=== PATIENT | male | born 1925 | race Hispanic/Latino ===

== ENCOUNTER 2016-09-28 09:43 | Inpatient (IN) | payer MEDICARE ==
[2016-09-28 09:47] VITALS: BMI 29.7
--- NOTE | 2016-09-28 10:23 | C.PDOC ---
History Of Present Illness 89-year-old male, PMHx includes Hypertension and Hypercholesterolemia, presents to the emergency department with complaints of new onset left chest pain that started an hour ago. Patient states pain worsens when she is walking. It is intermittent, sharp and localized, lasting minutes. Persistent and non- exertional, associated with light headedness. Denies nausea/vomiting, shortness of breath, fevers, chest pain. Patient has a Hx of "bad valve" No prior cardiac cath. Last stress test was several years ago. Denies Hx of known CAD. 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 ONSET WHEN WALKING, INTERMIT, SHARP, LOCALIZED LASTING MINUTES. PERSIST, NONEXERTIONAL. +ASSOC LIGHTHEADEDNESS. DENIES NV, SOB , FEVER, CP. HO "BAD VALVE". NO PRIOR CARDIAC CATH. LAST STRESS "SEV YRS AGO". DENIES HO KNOWN CAD. CARDIO DR MURIEL PATIÑO S/P CT 07/2016 +ABN CT W RENAL MASS. PS PENDING FU W DR PATIÑO FOR SAME EXAM MILD DIST NONTOXIC LUNGS NEG CHEST WALL NONTEND ABD NEG REMAINDER NEG Time Seen by Provider: 09/28/16 10:13 Chief Complaint (Nursing): Chest Pain History Per: Patient History/Exam Limitations: no limitations Onset/Duration Of Symptoms: Hrs Current Symptoms Are (Timing): Still Present Past Medical History Reviewed: Historical Data, Nursing Documentation, Vital Signs Vital Signs: Last Vital Signs Temp 98.1 F 10/05/16 05:25 Pulse 60 10/05/16 05:25 Resp 20 10/05/16 05:25 BP 156/74 H 10/05/16 05:25 Pulse Ox 96 10/05/16 07:21 - Medical History PMH: HTN, Hypercholesterolemia, Hypothyroidism, Pneumonia Denies: Chronic Kidney Disease Surgical History: Appendectomy, Tonsillectomy - [facility] Procedures CLOSURE SKIN & SUBCUTANEOUS NEC (07/29/14) INSERT INDWELLING CATH (12/12/12) TETANUS TOXOID ADMINIST (07/29/14) Family History: States: Unknown Family Hx - Social History Hx Tobacco Use: Yes (> 40 years no smoking) Hx Alcohol Use: Yes (wine) Hx Substance Use: No - Immunization History Hx Tetanus Toxoid Vaccination: Yes Hx Influenza Vaccination: Yes (2014) Hx Pneumococcal Vaccination: Yes (2014) Review Of Systems Except As Marked, All Systems Reviewed And Found Negative. Constitutional: Negative for: Fever, Chills Cardiovascular: Positive for: Chest Pain. Negative for: Palpitations, Edema Respiratory: Negative for: Shortness of Breath Gastrointestinal: Negative for: Nausea, Vomiting Neurological: Positive for: Dizziness Physical Exam - Physical Exam Appears: Non-toxic, No Acute Distress Skin: Warm, Dry, No Rash Head: Atraumatic, Normacephalic Eye(s): bilateral: Normal Inspection, PERRL Nose: Normal Oral Mucosa: Moist Lips: Normal Appearing Neck: Normal ROM Chest: Symmetrical Respiratory: No Accessory Muscle Use Extremity: Normal ROM Neurological/Psych: Oriented x3, Normal Speech ED Course And Treatment - Laboratory Results Result Diagrams: 10/05/16 06:19 10/05/16 06:19 ECG Rhythm: 1st Degree HB ECG Interpretation: No Acute Changes Rate From EC O2 Sat by Pulse Oximetry: 96 Pulse Ox Interpretation: Normal Progress - Re-Evaluation Re-evaluation Note: 09/28/16 12:00 D/W DR WISE C/F DR LLAMAS WILL CONSULT 09/28/16 12:10 D/W DR MILLER C/F PMD WILL ADMIT - Data Reviewed Data Reviewed: Lab, Diagnostic imaging, EKG, Old records - Continuity of Care Discussed patient case with:: Covering for PMD Discussed pt. case with [employer] consultant/specialty: Cardiology Medical Decision Making Medical Decision Making: S/P CT 07/2016 +ABN CT W RENAL MASS. PS PENDING FU W DR PATIÑO FOR SAME Disposition Counseled Patient/Family Regarding: Studies Performed, Diagnosis, Need For Followup - Disposition Disposition: HOSPITALIZED Disposition Time: 12:11 Condition: STABLE - POA Present On Arrival: None - Clinical Impression Clinical Impression: Chest pain - Scribe Statement The provider has reviewed the documentation as recorded by the Julia Valenzuela All medical record entries made by the Kenyattaibe were at my direction and personally dictated by me. I have reviewed the chart and agree that the record accurately reflects my personal performance of the history, physical exam, medical decision making, and the department course for this patient. I have also personally directed, reviewed, and agree with the discharge instructions and disposition. Decision To Admit - Pt Status Changed To: Hospital Disposition Of: Observation - . Bed Request Type: Telemetry Admitting Physician: Robert Miller Patient Diagnosis: Chest pain
[2016-09-28 10:57] LABS: BASO # 0.1 K/uL (0.0-0.2); BASO % 1.3 % (0.0-2.0); EOS # 0.1 K/uL (0.0-0.7); EOS % 2.4 % (0.0-4.0); LYMPH # 1.2 K/uL (1.0-4.3); LYMPH % 19.4 % (20.0-40.0); MEAN CELL VOLUME 89.8 fL (80.0-94.0); MEAN CORPUSCULAR HEMOGLOBIN 30.3 pg (27.0-31.0); MEAN CORPUSCULAR HGB CONC 33.8 g/dL (33.0-37.0); MEAN PLATELET VOLUME 8.3 fL (7.2-11.7); MONO # 0.5 K/uL (0.0-0.8); MONO % 7.8 % (0.0-10.0); NRBC % 0.4 % (0.0-2.0); RED CELL DISTRIBUTION WIDTH 14.4 % (11.5-14.5); WHITE BLOOD COUNT 6.2 K/uL (4.8-10.8)
[2016-09-28 11:05] LABS: CHLORIDE 107 mmol/L (98-107); SODIUM 142 mmol/L (132-148)
[2016-09-28 11:07] LABS: AST/SGOT 24 U/L (17-59); BILIRUBIN,TOTAL 0.8 mg/dL (0.2-1.3); CARBON DIOXIDE 20 mmol/L (22-30); GFR AFRICAN-AMERICAN > 60
[2016-09-28 11:08] LABS: ALB/GLOB RATIO 1.6 (1.0-2.1); ALKALINE PHOSPHATASE 66 U/L (38-126); ALT/SGPT 12 U/L (21-72); BLOOD UREA NITROGEN 24 mg/dL (9-20); CALCIUM 8.7 mg/dl (8.6-10.4); GLUCOSE,RANDOM 82 mg/dL (75-110); INR 1.1; TOTAL PROTEIN 6.6 g/dL (6.3-8.3)
--- NOTE | 2016-09-28 11:38 | RAD ---
HISTORY: chest pain COMPARISON: Chest x-ray performed 05/06/16 TECHNIQUE: Chest, one view. FINDINGS: Examination limited by habitus, hypoinflation, and patient obliquity. LUNGS: No focal consolidation. Please note that chest x-ray has limited sensitivity for the detection of pulmonary masses. PLEURA: No significant pleural effusion identified. No definite pneumothorax . CARDIOVASCULAR: Cardiomegaly. Ectatic aorta. Right peritracheal opacity, likely tortuous vasculature exaggerated by patient obliquity. OSSEOUS STRUCTURES: No acute osseous abnormality identified. VISUALIZED UPPER ABDOMEN: Unremarkable. OTHER FINDINGS: None. IMPRESSION: No focal consolidation, significant pleural effusion, or definite pneumothorax identified.
--- NOTE | 2016-09-28 15:51 | CP.PCM.HP ---
<Naomi Chow - Last Filed: 09/28/16 16:09> History of Present Illness - History of Present Illness History of Present Illness: CC" chest pain" 89 year old male with PMHx of HTN, high cholesterol, hypothyroid, "heart problems", BPH presented to the emergency via ambulance complaining of intermittent chest pain. Patient reports chest pain began this AM when he was walking to the store. He states he felt associated dizziness with the chest pain. Pain was sharp, would come and go and resolve spontaneously. Eventually he made it home and sat down to see if pain would resolve, but pain did not resolve with rest. Denies diaphoresis, palpitations, shortness of breath, leg swelling, radiation into limbs, nausea, vomiting, cough, fevers, chills, skin pain or rash. Patient states this has never happened before. He follows with patient care associate Dr. Yeboah for "heart problem" that happened years ago. Patient was told he "might be having a heart attack" in the ambulance which concerned him. PMHx:HTN, high cholesterol, hypothyroid, CHF, BPH, recently diagnosed renal mass. Allergies: Demerol ("almost ") Medications: Aspirin 81 mg Po daily, Amlodipine/Benazepril 5/10 PO daily, Lipitor 10 mg PO daily, Dutasteride 0.5 mg PO daily, Levothyroxine, 100 mcg PO daily, Flomax 0.4 mg PO daily. Family hx: denies Surgery Hx: tonsillectomy, appendectomy, lipoma excision. Social: quit tobacco 45 years ago, drinks wine with dinner from time to time. Denies drug use. PMD: Dr. Cummins. Present on Admission - Present on Admission Any Indicators Present on Admission: No Review of Systems - Constitutional Constitutional: absent: Fatigue, Fever - EENT Eyes: absent: Blurred Vision, Change in Vision - Cardiovascular Cardiovascular: Chest Pain, Chest Pain at Rest. absent: Claudication, Diaphoresis, Dyspnea, Leg Edema, Pedal Edema, Radiating Pain - Respiratory Respiratory: absent: Cough, Dyspnea, Wheezing - Gastrointestinal Gastrointestinal: absent: Abdominal Pain, Constipation, Diarrhea, Nausea, Vomiting - Genitourinary Genitourinary: absent: Difficulty Urinating, Dysuria - Musculoskeletal Musculoskeletal: absent: Arthralgias, Back Pain, Myalgias, Numbness, Tingling - Neurological Neurological: Disequilibrium, Dizziness, Weakness. absent: Confusion, Focal Weakness, Loss of Vision, Syncope, Vertigo - Endocrine Endocrine: Fatigue. absent: Palpitations - Hematologic/Lymphatic Hematologic: absent: Easy Bleeding, Easy Bruising Past Patient History - Infectious Disease Hx of Infectious Diseases: None - Past Medical History & Family History Past Medical History?: Yes - Past Social History Smoking Status: Former Smoker - CARDIAC Hx Hypercholesterolemia: Yes Hx Hypertension: Yes - PULMONARY Hx Pneumonia: Yes - NEUROLOGICAL Hx Neurological Disorder: No - HEENT Hx HEENT Problems: Yes Hx Macular Degeneration: Yes (L eye) - RENAL Hx Chronic Kidney Disease: No - ENDOCRINE/METABOLIC Hx Hypothyroidism: Yes - HEMATOLOGICAL/ONCOLOGICAL Hx Blood Disorders: No - INTEGUMENTARY Hx Dermatological Problems: No - MUSCULOSKELETAL/RHEUMATOLOGICAL Hx Falls: No - GASTROINTESTINAL Hx Gastrointestinal Disorders: No - GENITOURINARY/GYNECOLOGICAL Hx Genitourinary Disorders: Yes Hx Prostate Problems: Yes - PSYCHIATRIC Hx Substance Use: No - SURGICAL HISTORY Hx Appendectomy: Yes Hx Tonsillectomy: Yes - ANESTHESIA Hx Anesthesia: Yes Hx Anesthesia Reactions: No Hx Malignant Hyperthermia: No Meds Allergies/Adverse Reactions: Allergies Allergy/AdvReac Type Severity Reaction Status Date / Time meperidine HCl [From Demerol] Allergy ANAPHYLAXIS Verified 09/28/16 09:57 Physical Exam - Constitutional Appears: No Acute Distress - Head Exam Head Exam: NORMAL INSPECTION, NORMOCEPHALIC - Eye Exam Eye Exam: EOMI, Normal appearance - ENT Exam ENT Exam: Mucous Membranes Moist - Neck Exam Neck exam: Positive for: Full Rom, Normal Inspection - Respiratory Exam Respiratory Exam: Clear to Auscultation Bilateral, NORMAL BREATHING PATTERN - Cardiovascular Exam Cardiovascular Exam: REGULAR RHYTHM, +S1, +S2. absent: Systolic Murmur - GI/Abdominal Exam GI & Abdominal Exam: Normal Bowel Sounds, Soft. absent: Distended, Tenderness - Extremities Exam Extremities exam: Positive for: full ROM, normal inspection - Back Exam Back exam: NORMAL INSPECTION - Neurological Exam Neurological exam: Alert, Oriented x3 - Psychiatric Exam Psychiatric exam: Normal Affect, Normal Mood - Skin Skin Exam: Normal Color, Warm Results - Vital Signs Recent Vital Signs: Last Vital Signs Temp 98 F 09/28/16 14:47 Pulse 60 09/28/16 14:47 Resp 16 09/28/16 14:47 BP 169/71 H 09/28/16 14:47 Pulse Ox 99 09/28/16 14:47 - Labs Result Diagrams: 09/28/16 10:48 09/28/16 10:48 Assessment & Plan (1) Chest pain Assessment and Plan: Admit to Tele/Obs IKER on admission: negative. EKG on admission shows 1 degree heart block. f/u IKER Q6H X3 f/u EKG Q6H X 3 D. Dimer: 229, WNL. Cardio consult placed- Dr. Yeboah- elyssa appreciated. Resume home meds: Aspirin 81 mg Po daily Crestor 5 mg PO daily (Atorvastatin no on formulary) Amlodipine-Benazepril 5-10 mg (not on formulary, pharmacy to substitute) 2L NC O2 Status: Acute (2) Chronic congestive heart failure Assessment and Plan: Cardio consult placed- Dr. Yeboah- elyssa appreciated. As per chart. 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 Resume home meds: Aspirin 81 mg Po daily Crestor 5 mg PO daily (Atorvastatin no on formulary) Amlodipine-Benazepril 5-10 mg (not on formulary, pharmacy to substitute) 2L NC O2 Status: Acute (3) Hyperlipidemia Assessment and Plan: Resume home med: Crestor 5 mg PO daily (Atorvastatin no on formulary) Status: Acute (4) BPH (benign prostatic hyperplasia) Assessment and Plan: Resume home meds: Flomax 0.4 mg PO daily Status: Chronic (5) Hypothyroidism Assessment and Plan: Resume Home med: Synthroid 100 mcg daily f/u TSH in the AM Status: Chronic (6) HTN (hypertension) Assessment and Plan: Cardio consult placed- Dr. Yeboah- elyssa appreciated. Resume home meds: Amlodipine-Benazepril 5-10 mg (not on formulary, pharmacy to substitute) Status: Acute (7) Renal mass Assessment and Plan: Abd CT 07/2016 showed renal mass. Patient pending outpatient follow up with Dr. Patiño. Status: Acute (8) Prophylactic measure Assessment and Plan: Protonix 40 mg PO daily Heparin 5000 SC Q8H Status: Acute <Robert Miller M - Last Filed: 09/28/16 17:19> Results - Vital Signs Recent Vital Signs: Last Vital Signs Temp 97.3 F L 09/28/16 15:46 Pulse 56 L 09/28/16 15:46 Resp 20 09/28/16 15:46 BP 150/69 09/28/16 15:46 Pulse Ox 99 09/28/16 15:46 - Labs Result Diagrams: 09/28/16 10:48 09/28/16 10:48 Attending/Attestation - Attestation I have personally seen and examined this patient.: Yes I have fully participated in the care of the patient.: Yes I have reviewed all pertinent clinical information: Yes Notes (Text): 09/28/16 17:15 Patient was seen and examined at bedside with the resident at the time of admission Patient denies any chest pain at this time Patient to be admitted on the telemetry unit for further evaluation and treatment We will rule out acute coronary syndrome. Cardiology consultation has been requested Patient to follow-up with the urologist for renal mass. We will request urology consultation. I discussed the plan of care with the resident and agree with the above history and physical and assessment/plan by the resident.
[2016-09-28] MEDS ORDERED: BENAZEPRIL PO SCH (15:55)
[2016-09-28] MEDS ORDERED: AMLODIPINE BESYLATE PO SCH (15:55)
[2016-09-28] MEDS ORDERED: Rosuvastatin Calcium 2.5 mg Tab PO SCH (22:00)
[2016-09-29] MEDS: Levothyroxine 100 MCG TAB PO SCH (05:46)
[2016-09-29 06:11] LABS: EOS # 0.2 K/uL (0.0-0.7); LYMPH # 1.3 K/uL (1.0-4.3); LYMPH % 19.4 % (20.0-40.0); MONO # 0.6 K/uL (0.0-0.8); NRBC % 0.1 % (0.0-2.0); RED CELL DISTRIBUTION WIDTH 14.2 % (11.5-14.5); WHITE BLOOD COUNT 6.6 K/uL (4.8-10.8)
[2016-09-29 06:16] LABS: BASO % 0.6 % (0.0-2.0); EOS % 3.5 % (0.0-4.0); HEMATOCRIT 41.4 % (35.0-51.0); MEAN CORPUSCULAR HGB CONC 34.8 g/dL (33.0-37.0); MEAN PLATELET VOLUME 8.4 fL (7.2-11.7); MONO % 8.6 % (0.0-10.0)
[2016-09-29 06:19] LABS: CHLORIDE 107 mmol/L (98-107); INR 1.1; SODIUM 142 mmol/L (132-148)
[2016-09-29 06:20] LABS: POTASSIUM 3.9 mmol/L (3.6-5.2)
[2016-09-29 06:21] LABS: CHOLESTEROL 131 mg/dL (0-199)
[2016-09-29 06:22] LABS: ALB/GLOB RATIO 1.6 (1.0-2.1); ALKALINE PHOSPHATASE 63 U/L (38-126); AST/SGOT 22 U/L (17-59); BILIRUBIN,TOTAL 0.7 mg/dL (0.2-1.3); BLOOD UREA NITROGEN 27 mg/dL (9-20); CARBON DIOXIDE 24 mmol/L (22-30); GFR AFRICAN-AMERICAN > 60; GLUCOSE,RANDOM 83 mg/dL (75-110); TOTAL PROTEIN 6.1 g/dL (6.3-8.3)
[2016-09-29 06:23] LABS: ALT/SGPT 24 U/L (21-72); CALCIUM 8.6 mg/dl (8.6-10.4)
[2016-09-29 06:53] LABS: THYROID STIMULATING HORMONE 0.77 mIU/L (0.46-4.68)
[2016-09-29] MEDS ORDERED: AMLODIPINE BESYLATE PO SCH (10:00)
[2016-09-29] MEDS ORDERED: BENAZEPRIL PO SCH (10:00)
[2016-09-29] MEDS: Pantoprazole 40 mg EC Tab PO SCH (10:09)
--- NOTE | 2016-09-29 10:50 | CP.PCM.PN ---
<Naomi Chow - Last Filed: 09/29/16 15:13> Subjective - Date & Time of Evaluation Date of Evaluation: 09/29/16 Time of Evaluation: 08:00 - Subjective Subjective: Medicine Progress Note: Patient seen and evaluated this morning. Patient reports he was feeling well this morning with no SOB, chest pain, fevers, chills, nausea, vomiting. Patient had some "chest soreness" in left chest. No acute events overnight. Rapid response was called at 10:40 am for sudden dizziness and feeling like he was "going to collapse". Patient was in the process of getting out of bed when event happened. EKG ordered stat showed 56 BPM with 2nd degree AV block. Prolonged MS with dropped beats. Patient symptomatic. Vital signs: 63 bpm, 175/83/ BS 102. Patient's telemetry was reviewed and patient showed bradycardia overnight night 50-56 bpm regular rhythm with 2 second pause. On bedside monitor patient was found to have HR 30-40's. Dr. Yeboah is patient 's senior communications engineer. Call was placed. Patient was placed on o2 and transferred to ICU for close monitoring. STAT IKER, Mag and Phos ordered. AM labs reviewed with attending. Objective - Vital Signs/Intake and Output Vital Signs (last 24 hours): Temp Pulse Resp BP Pulse Ox 97.7 F 61 19 183/88 H 96 09/29/16 08:16 09/29/16 08:46 09/29/16 08:16 09/29/16 10:10 09/29/16 08:16 Intake and Output: 09/29/16 09/29/16 06:59 18:59 Intake Total 150 Balance 150 - Medications Medications: Current Medications Amlodipine Besylate (Norvasc) 5 mg PO DAILY [facility] Last Admin: 09/29/16 10:09 Dose: 5 mg Aspirin (Ecotrin) 81 mg PO DAILY [facility] Last Admin: 09/29/16 10:10 Dose: 81 mg Enalapril Maleate (Vasotec) 5 mg PO DAILY [facility] Heparin Sodium (Porcine) (Heparin) 5,000 units SC Q8 [facility] Last Admin: 09/29/16 05:46 Dose: 5,000 units Levothyroxine Sodium (Synthroid) 100 mcg PO DAILY@0630 [facility] Last Admin: 09/29/16 05:46 Dose: 100 mcg Nitroglycerin (Nitrostat Sl Tab) 0.4 mg SL Q5M PRN Pantoprazole Sodium (Protonix Ec Tab) 40 mg PO DAILY [facility] Last Admin: 09/29/16 10:09 Dose: 40 mg Rosuvastatin Calcium (Crestor) 5 mg PO HS [facility] Last Admin: 09/28/16 21:13 Dose: 5 mg Tamsulosin HCl (Flomax) 0.4 mg PO DAILY [facility] Last Admin: 09/29/16 10:09 Dose: 0.4 mg - Labs Labs: 09/29/16 06:06 09/29/16 06:06 PT 12.1 SECONDS (9.7-12.2) 09/29/16 06:06 INR 1.1 09/29/16 06:06 APTT 35 SECONDS (21-34) H 09/29/16 06:06 - Constitutional Appears: In Acute Distress - Head Exam Head Exam: NORMAL INSPECTION, NORMOCEPHALIC - Eye Exam Eye Exam: EOMI, Normal appearance - ENT Exam ENT Exam: Mucous Membranes Moist - Neck Exam Neck Exam: Full ROM, Normal Inspection - Respiratory Exam Respiratory Exam: Clear to Ausculation Bilateral, NORMAL BREATHING PATTERN - Cardiovascular Exam Cardiovascular Exam: Bradycardia, REGULAR RHYTHM, +S1, +S2 - GI/Abdominal Exam GI & Abdominal Exam: Soft. absent: Distended, Tenderness - Extremities Exam Extremities Exam: Full ROM, Normal Inspection - Back Exam Back Exam: NORMAL INSPECTION - Neurological Exam Neurological Exam: Alert, Awake, Oriented x3 - Psychiatric Exam Psychiatric exam: Normal Affect, Normal Mood - Skin Skin Exam: Normal Color, Warm Assessment and Plan - Assessment and Plan (Free Text) Assessment: (1) Chest pain Assessment and Plan: Transferred from Tele to ICU this AM for cardiac monitoring. Telemetry showed bradycardia 50's. Monitor at bedside shows HR as low as 30-40' s with MS prolongation and dropped beats. EKG on admission shows 1st degree heart block. IKER Q6H X3 were also negative. D. Dimer: 229, WNL. Cardio consult placed- Dr. Yeboah- help appreciated. (Dr. Cassidy curtis) Gear Hobber Operator at bedside this AM. Possible plan for placement of pacemaker. Resume home meds: Aspirin 81 mg PO daily Crestor 5 mg PO daily (Atorvastatin no on formulary) Amlodipine-Benazepril 5-10 mg (not on formulary, pharmacy to substitute) 2L NC O2 Status: Acute (2) Chronic congestive heart failure Assessment and Plan: Cardio consult placed- Dr. Yeboah- elyssa appreciated. (Dr. Cassidy curtis) As per chart. 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 Resume home meds: Aspirin 81 mg Po daily Crestor 5 mg PO daily (Atorvastatin no on formulary) Amlodipine-Benazepril 5-10 mg (not on formulary, pharmacy to substitute) 2L NC O2 Status: Acute (3) Hyperlipidemia Assessment and Plan: Resume home med: Crestor 5 mg PO daily (Atorvastatin no on formulary) Status: Acute (4) BPH (benign prostatic hyperplasia) Assessment and Plan: Resume home meds: Flomax 0.4 mg PO daily Status: Chronic (5) Hypothyroidism Assessment and Plan: Resume Home med: Synthroid 100 mcg daily 0.77 TSH in the AM Status: Chronic (6) HTN (hypertension) Assessment and Plan: Cardio consult placed- Dr. Yeboah- elyssa appreciated. Resume home meds: Amlodipine-Benazepril 5-10 mg (not on formulary, pharmacy to substitute) Status: Acute (7) Renal mass Assessment and Plan: Abd CT 07/2016 showed renal mass. Patient pending outpatient follow up with Dr. Patiño. Urology consult placed- Dr. Patiño- elyssa appreciated. Status: Acute (8) Prophylactic measure Assessment and Plan: Protonix 40 mg PO daily Heparin 5000 SC Q8H Status: Acute <PaulRobert M - Last Filed: 09/29/16 17:06> Objective - Vital Signs/Intake and Output Vital Signs (last 24 hours): Temp Pulse Resp BP Pulse Ox 97.4 F L 72 13 132/64 95 09/29/16 11:15 09/29/16 14:17 09/29/16 14:17 09/29/16 14:17 09/29/16 14:17 - Medications Medications: Current Medications Amlodipine Besylate (Norvasc) 5 mg PO DAILY [facility] Last Admin: 09/29/16 10:09 Dose: 5 mg Aspirin (Ecotrin) 81 mg PO DAILY [facility] Last Admin: 09/29/16 10:10 Dose: 81 mg Enalapril Maleate (Vasotec) 5 mg PO DAILY [facility] Heparin Sodium (Porcine) (Heparin) 5,000 units SC Q8 [facility] Last Admin: 09/29/16 14:20 Dose: 5,000 units Dextrose/Sodium Chloride (Dextrose 5%/0.45% Ns 1000 Ml) 1,000 mls @ 60 mls/hr IV .[id number] [facility] Levothyroxine Sodium (Synthroid) 100 mcg PO DAILY@0630 [facility] Last Admin: 09/29/16 05:46 Dose: 100 mcg Nitroglycerin (Nitrostat Sl Tab) 0.4 mg SL Q5M PRN Pantoprazole Sodium (Protonix Ec Tab) 40 mg PO DAILY [facility] Last Admin: 09/29/16 10:09 Dose: 40 mg Rosuvastatin Calcium (Crestor) 5 mg PO HS [facility] Last Admin: 09/28/16 21:13 Dose: 5 mg Tamsulosin HCl (Flomax) 0.4 mg PO DAILY [facility] Last Admin: 09/29/16 10:09 Dose: 0.4 mg - Labs Labs: PT 12.1 SECONDS (9.7-12.2) 09/29/16 06:06 INR 1.1 09/29/16 06:06 APTT 35 SECONDS (21-34) H 09/29/16 06:06 Attending/Attestation - Attestation I have personally seen and examined this patient.: Yes I have fully participated in the care of the patient.: Yes I have reviewed all pertinent clinical information, including history, physical exam and plan: Yes Notes (Text): 09/29/16 17:04 Patient was seen and examined during the rapid response Patient was extremely symptomatic with dizziness and generalized weakness. EKG performed and patient was found to be in second-degree heart block Mobitz type I Patient was transferred to ICU and the cardiology consultation was done Atropine when necessary for symptomatic bradycardia and external pacemaker initiated. Patient is planned for pacemaker placement tomorrow morning I discussed the plan of care with the patient, patient's family I also discussed with the nursing staff, resident, ICU attending and the senior communications engineer I agree with the above history and physical and assessment/plan with the nursery amendments.
[2016-09-29 11:18] LABS: MAGNESIUM 2.3 mg/dL (1.6-2.3); PHOSPHOROUS 2.5 mg/dL (2.5-4.5)
--- NOTE | 2016-09-29 11:54 | CP.CCUPN ---
CCU Subjective - Physician Review Events Since Last Encounter (Free Text): 09/29/16 11:46 89yo M. PMHx HTN, dyslipidemia, hypothyroidism, BPH, tonsillectomy, appendectomy , renal mass, CHF. p/w chest pain and dizziness. Patient transferred to ICU for recurrent symptomatic bradycardia. CCU Objective - Vital Signs / Intake & Output Vital Signs (Last 4 hours): Vital Signs Temp Pulse Resp BP Pulse Ox 09/29/16 10:10 183/88 H 09/29/16 08:46 61 09/29/16 08:16 97.7 F 58 L 19 170/74 H 96 Intake and Output (Last 8hrs): Intake & Output 09/28/16 09/29/16 09/29/16 22:59 06:59 14:59 Intake Total 150 Balance 150 Weight 180 lb Intake: Oral 150 Other: # Voids Urine, Voided 1 - Physical Exam Head: Positive for: Atraumatic, Normocephalic Pupils: Positive for: PERRL Extroacular Muscles: Positive for: EOMI Mouth: Positive for: Moist Mucous Membranes Respiratory/Chest: Positive for: Clear to Auscultation, Good Air Exchange Cardiovascular: Positive for: Regular Rate and Rhythm Abdomen: Positive for: Normal Bowel Sounds. Negative for: Tenderness, Distention Neurological: Positive for: GCS=15, CN II-XII Intact, Speech Normal Psychiatric: Positive for: Alert, Oriented x 3 - Medications Active Medications: Active Medications Generic Name Dose Route Start Last Admin Trade Name Freq PRN Reason Stop Dose Admin Amlodipine Besylate 5 mg 09/29/16 10:00 09/29/16 10:09 Norvasc PO 5 mg DAILY ERIKA Administration Aspirin 81 mg 09/29/16 10:00 09/29/16 10:10 Ecotrin PO 81 mg DAILY ERIKA Administration Enalapril Maleate 5 mg 09/29/16 10:45 Vasotec PO DAILY ERIKA Heparin Sodium (Porcine) 5,000 units 09/28/16 22:00 09/29/16 05:46 Heparin SC 5,000 units Q8 ERIKA Administration Dextrose/Sodium Chloride 1,000 mls @ 60 mls/hr 09/30/16 09:00 Dextrose 5%/0.45% Ns 1000 Ml IV .[id number] [facility] Levothyroxine Sodium 100 mcg 09/29/16 06:30 09/29/16 05:46 Synthroid PO 100 mcg DAILY@0630 ERIKA Administration Nitroglycerin 0.4 mg 09/28/16 14:57 Nitrostat Sl Tab SL Q5M PRN Pantoprazole Sodium 40 mg 09/29/16 10:00 09/29/16 10:09 Protonix Ec Tab PO 40 mg DAILY ERIKA Administration Rosuvastatin Calcium 5 mg 09/28/16 22:00 09/28/16 21:13 Crestor PO 5 mg HS ERIKA Administration Tamsulosin HCl 0.4 mg 09/29/16 10:00 09/29/16 10:09 Flomax PO 0.4 mg DAILY ERIKA Administration - Patient Studies Lab Studies: Lab Studies 09/29/16 09/29/16 09/29/16 Range/Units 11:01 06:06 06:06 WBC (4.8-10.8) K/uL RBC (4.40-5.90) Mil/uL Hgb (12.0-18.0) g/dL Hct (35.0-51.0) % MCV (80.0-94.0) fL MCH (27.0-31.0) pg MCHC (33.0-37.0) g/dL RDW (11.5-14.5) % Plt Count (130-400) K/uL MPV (7.2-11.7) fL Neut % (Auto) (50.0-75.0) % Lymph % (Auto) (20.0-40.0) % Young % (Auto) (0.0-10.0) % Eos % (Auto) (0.0-4.0) % Baso % (Auto) (0.0-2.0) % Neut # (1.8-7.0) K/uL Lymph # (1.0-4.3) K/uL Young # (0.0-0.8) K/uL Eos # (0.0-0.7) K/uL Baso # (0.0-0.2) K/uL PT (9.7-12.2) SECONDS INR APTT (21-34) SECONDS Sodium (132-148) mmol/L Potassium (3.6-5.2) mmol/L Chloride (98-107) mmol/L Carbon Dioxide (22-30) mmol/L Anion Gap (10-20) BUN (9-20) mg/dL Creatinine (0.8-1.5) MG/DL Est GFR ( Amer) Est GFR (Non-Af Amer) Random Glucose (75-110) mg/dL Calcium (8.6-10.4) mg/dl Phosphorus 2.5 (2.5-4.5) mg/dL Magnesium 2.3 (1.6-2.3) mg/dL Total Bilirubin (0.2-1.3) mg/dL AST (17-59) U/L ALT (21-72) U/L Alkaline Phosphatase (38-126) U/L Total Creatine Kinase 63 58 (55-170) U/L CK-MB (Mass) 2.07 2.14 (0.0-3.38) ng/mL Troponin I, Quant 0.0240 0.0260 (0.00-0.120) ng/mL Total Protein (6.3-8.3) g/dL Albumin (3.5-5.0) g/dL Globulin (2.2-3.9) gm/dL Albumin/Globulin Ratio (1.0-2.1) Triglycerides (0-149) mg/dL Cholesterol (0-199) mg/dL LDL Cholesterol Direct (0-129) mg/dL HDL Cholesterol (30-70) mg/dL Free T4 1.04 (0.78-2.19) ng/dL TSH 3rd Generation (0.46-4.68) mIU/L 09/29/16 09/29/16 09/29/16 Range/Units 06:06 06:06 06:06 WBC 6.6 (4.8-10.8) K/uL RBC 4.65 (4.40-5.90) Mil/uL Hgb 14.4 (12.0-18.0) g/dL Hct 41.4 (35.0-51.0) % MCV 89.0 (80.0-94.0) fL MCH 31.0 (27.0-31.0) pg MCHC 34.8 (33.0-37.0) g/dL RDW 14.2 (11.5-14.5) % Plt Count 109 L D (130-400) K/uL MPV 8.4 (7.2-11.7) fL Neut % (Auto) 67.9 (50.0-75.0) % Lymph % (Auto) 19.4 L (20.0-40.0) % Young % (Auto) 8.6 (0.0-10.0) % Eos % (Auto) 3.5 (0.0-4.0) % Baso % (Auto) 0.6 (0.0-2.0) % Neut # 4.5 (1.8-7.0) K/uL Lymph # 1.3 (1.0-4.3) K/uL Young # 0.6 (0.0-0.8) K/uL Eos # 0.2 (0.0-0.7) K/uL Baso # 0.0 (0.0-0.2) K/uL PT 12.1 (9.7-12.2) SECONDS INR 1.1 APTT 35 H (21-34) SECONDS Sodium 142 (132-148) mmol/L Potassium 3.9 (3.6-5.2) mmol/L Chloride 107 (98-107) mmol/L Carbon Dioxide 24 (22-30) mmol/L Anion Gap 15 (10-20) BUN 27 H (9-20) mg/dL Creatinine 1.1 (0.8-1.5) MG/DL Est GFR ( Amer) > 60 Est GFR (Non-Af Amer) > 60 Random Glucose 83 (75-110) mg/dL Calcium 8.6 (8.6-10.4) mg/dl Phosphorus (2.5-4.5) mg/dL Magnesium (1.6-2.3) mg/dL Total Bilirubin 0.7 (0.2-1.3) mg/dL AST 22 (17-59) U/L ALT 24 (21-72) U/L Alkaline Phosphatase 63 (38-126) U/L Total Creatine Kinase (55-170) U/L CK-MB (Mass) (0.0-3.38) ng/mL Troponin I, Quant (0.00-0.120) ng/mL Total Protein 6.1 L (6.3-8.3) g/dL Albumin 3.8 (3.5-5.0) g/dL Globulin 2.4 (2.2-3.9) gm/dL Albumin/Globulin Ratio 1.6 (1.0-2.1) Triglycerides 97 D (0-149) mg/dL Cholesterol 131 (0-199) mg/dL LDL Cholesterol Direct 72 (0-129) mg/dL HDL Cholesterol 34 (30-70) mg/dL Free T4 (0.78-2.19) ng/dL TSH 3rd Generation 0.77 (0.46-4.68) mIU/L 09/28/16 09/28/16 Range/Units 23:02 17:14 WBC (4.8-10.8) K/uL RBC (4.40-5.90) Mil/uL Hgb (12.0-18.0) g/dL Hct (35.0-51.0) % MCV (80.0-94.0) fL MCH (27.0-31.0) pg MCHC (33.0-37.0) g/dL RDW (11.5-14.5) % Plt Count (130-400) K/uL MPV (7.2-11.7) fL Neut % (Auto) (50.0-75.0) % Lymph % (Auto) (20.0-40.0) % Young % (Auto) (0.0-10.0) % Eos % (Auto) (0.0-4.0) % Baso % (Auto) (0.0-2.0) % Neut # (1.8-7.0) K/uL Lymph # (1.0-4.3) K/uL Young # (0.0-0.8) K/uL Eos # (0.0-0.7) K/uL Baso # (0.0-0.2) K/uL PT (9.7-12.2) SECONDS INR APTT (21-34) SECONDS Sodium (132-148) mmol/L Potassium (3.6-5.2) mmol/L Chloride (98-107) mmol/L Carbon Dioxide (22-30) mmol/L Anion Gap (10-20) BUN (9-20) mg/dL Creatinine (0.8-1.5) MG/DL Est GFR ( Amer) Est GFR (Non-Af Amer) Random Glucose (75-110) mg/dL Calcium (8.6-10.4) mg/dl Phosphorus (2.5-4.5) mg/dL Magnesium (1.6-2.3) mg/dL Total Bilirubin (0.2-1.3) mg/dL AST (17-59) U/L ALT (21-72) U/L Alkaline Phosphatase (38-126) U/L Total Creatine Kinase 60 65 (55-170) U/L CK-MB (Mass) 1.68 2.05 (0.0-3.38) ng/mL Troponin I, Quant 0.0200 0.0220 (0.00-0.120) ng/mL Total Protein (6.3-8.3) g/dL Albumin (3.5-5.0) g/dL Globulin (2.2-3.9) gm/dL Albumin/Globulin Ratio (1.0-2.1) Triglycerides (0-149) mg/dL Cholesterol (0-199) mg/dL LDL Cholesterol Direct (0-129) mg/dL HDL Cholesterol (30-70) mg/dL Free T4 (0.78-2.19) ng/dL TSH 3rd Generation (0.46-4.68) mIU/L Laboratory Results - last 24 hr 09/28/16 09/28/16 09/29/16 17:14 23:02 06:06 WBC 6.6 RBC 4.65 Hgb 14.4 Hct 41.4 MCV 89.0 MCH 31.0 MCHC 34.8 RDW 14.2 Plt Count 109 L D MPV 8.4 Neut % (Auto) 67.9 Lymph % (Auto) 19.4 L Young % (Auto) 8.6 Eos % (Auto) 3.5 Baso % (Auto) 0.6 Neut # 4.5 Lymph # 1.3 Young # 0.6 Eos # 0.2 Baso # 0.0 PT INR APTT Sodium Potassium Chloride Carbon Dioxide Anion Gap BUN Creatinine Est GFR ( Amer) Est GFR (Non-Af Amer) Random Glucose Calcium Phosphorus Magnesium Total Bilirubin AST ALT Alkaline Phosphatase Total Creatine Kinase 65 60 CK-MB (Mass) 2.05 1.68 Troponin I, Quant 0.0220 0.0200 Total Protein Albumin Globulin Albumin/Globulin Ratio Triglycerides Cholesterol LDL Cholesterol Direct HDL Cholesterol Free T4 TSH 3rd Generation 09/29/16 09/29/16 09/29/16 06:06 06:06 06:06 WBC RBC Hgb Hct MCV MCH MCHC RDW Plt Count MPV Neut % (Auto) Lymph % (Auto) Young % (Auto) Eos % (Auto) Baso % (Auto) Neut # Lymph # Young # Eos # Baso # PT 12.1 INR 1.1 APTT 35 H Sodium 142 Potassium 3.9 Chloride 107 Carbon Dioxide 24 Anion Gap 15 BUN 27 H Creatinine 1.1 Est GFR ( Amer) > 60 Est GFR (Non-Af Amer) > 60 Random Glucose 83 Calcium 8.6 Phosphorus Magnesium Total Bilirubin 0.7 AST 22 ALT 24 Alkaline Phosphatase 63 Total Creatine Kinase CK-MB (Mass) Troponin I, Quant Total Protein 6.1 L Albumin 3.8 Globulin 2.4 Albumin/Globulin Ratio 1.6 Triglycerides 97 D Cholesterol 131 LDL Cholesterol Direct 72 HDL Cholesterol 34 Free T4 1.04 TSH 3rd Generation 0.77 09/29/16 09/29/16 06:06 11:01 WBC RBC Hgb Hct MCV MCH MCHC RDW Plt Count MPV Neut % (Auto) Lymph % (Auto) Young % (Auto) Eos % (Auto) Baso % (Auto) Neut # Lymph # Young # Eos # Baso # PT INR APTT Sodium Potassium Chloride Carbon Dioxide Anion Gap BUN Creatinine Est GFR ( Amer) Est GFR (Non-Af Amer) Random Glucose Calcium Phosphorus 2.5 Magnesium 2.3 Total Bilirubin AST ALT Alkaline Phosphatase Total Creatine Kinase 58 63 CK-MB (Mass) 2.14 2.07 Troponin I, Quant 0.0260 0.0240 Total Protein Albumin Globulin Albumin/Globulin Ratio Triglycerides Cholesterol LDL Cholesterol Direct HDL Cholesterol Free T4 TSH 3rd Generation EKG/Cardiology Studies: Cardiology / EKG Studies 09/28/16 17:00 EKG [ELECTROCARDIOGRAM] Q6H Comment: Mode Of Transportation: Reason For Exam: chest pain ACS 09/28/16 23:00 EKG [ELECTROCARDIOGRAM] Q6H Comment: Mode Of Transportation: Reason For Exam: chest pain ACS 09/29/16 05:00 EKG [ELECTROCARDIOGRAM] Q6H Comment: Mode Of Transportation: Reason For Exam: chest pain ACS 09/29/16 10:44 EKG [ELECTROCARDIOGRAM] Stat Comment: Mode Of Transportation: Reason For Exam: chest pain Review of Systems - Review of Systems Review of Systems: all systems reviewed and currently all unremarkable. Assessment/Plan (1) Bradycardia Assessment and plan: 89yo M. PMHx HTN, dyslipidemia, hypothyroidism, BPH, tonsillectomy, appendectomy , renal mass, CHF. p/w chest pain and dizziness. Patient transferred to ICU for recurrent symptomatic bradycardia. Neuro: Alert and oriented 3 Pulm: No acute issues, breathing spontaneously on nasal cannula oxygen. CV: Hemodynamically stable. The patient transferred to ICU for cardiac monitoring, currently asymptomatic and not bradycardic. We will have atropine at bedside, patient placed on external pacer. Cardiology consult pending for placement of pacemaker. Hem: No acute issues Renal: No acute issues, urine output within normal limits, will monitor. Endo: Hypothyroidism, follow-up TSH. Continue levothyroxine po. GI: Heart healthy diet ID: No acute issues DVT proph - heparin subcutaneous GI proph - Protonix Code status - full code Crtical Care Time spent 35 minutes Multi-disciplinary rounds were performed with house staff, nursing, speech therapy, respiratory therapy, pharmacy and nutrition with integrated input from the primary team/attending and other consulting services. The documented time is cumulative and includes review of patient data/exams/labs/chart review and examination of the patient on rounds and throughout the day; time is exclusive of any procedures or teaching time. Current Visit: Yes Status: Acute
--- NOTE | 2016-09-29 19:00 | CON ---
I was asked to see patient because of lightheadedness, syncope. HISTORY OF PRESENT ILLNESS: The patient is an 89-year-old gentleman with history of hypertension. N o history of diabetes, hypercholesterolemia in the past. The patient is an ex-smoker. He has no kno wn coronary artery disease. The patient is being followed by Dr. Yeboah for valvular disease. The patient states that he is physically active and denies any chest pain or shortness of breath on h is usual daily activities. Yesterday, patient said that he [place] and developed severe chest pain in the left side, sharp in nature, lasting for a few seconds and subsided spontaneously. Afterwards, he felt li ghtheaded and almost syncopal. With the above complaints, the patient presented to the [facility] at [facility]. The patient ruled out for myocardial infarction. However, this morning again, he had episodes of lightheadedness; however, he states that it was not as severe as before. At leas t 1 EKG shows AV angelia Wenckebach, and telemetry showed pauses about 2-3 seconds. It is unclear from the strips whether it is sinus pauses or AV angelia Wenckebach. The patient currently feels well. He did not have any chest pain with the dizziness. PAST MEDICAL HISTORY: Significant for appendectomy and surgery on his back. PERSONAL HISTORY: The patient is a . MEDICATIONS AT HOME: Reviewed. The patient is not on any beta blockers. FAMILY HISTORY: Noncontributory. REVIEW OF SYSTEMS: As above. All other systems are negative. PHYSICAL EXAMINATION: GENERAL: The patient is alert and oriented x 3, not in any distress. Extraocular movements normal. Affect normal. No obvious focal neurologic deficit. NECK: No jugular venous distention. LUNGS: Clinically clear. HEART: S1, S2. Ejection systolic murmur. ABDOMEN: Soft. No organomegaly or tenderness. EXTREMITIES: No edema of the legs. No pallor, no icterus. EKG shows normal sinus rhythm, anterosep sil SC pattern, first degree AV block, narrow complex QRS. VITAL SIGNS: Blood pressure was 160/80, pulse rate is 60, respiratory rate 18. His troponins were n egative. TSH is normal. ASSESSMENT: At this time, I had an extensive discussion with patient regarding indications, risks an d benefits of permanent pacemaker implantation. The patient and daughter will be discussing. At this time, the patient had external pacemaker placed. The patient will also have atropine and epi nephrine by the bedside. Atropine will be given if he has any bradyarrhythmias. Risks, benefits of temporary pacer were discussed. At this point, patient reluctant to have anything invasive. Jose Benjamin MD cc: [id number] TT: 09/29/2016 18:59:31 mn
[2016-09-30] MEDS: Levothyroxine 100 MCG TAB PO SCH (05:50)
[2016-09-30 06:50] LABS: CHLORIDE 106 mmol/L (98-107); SODIUM 141 mmol/L (132-148)
[2016-09-30 06:51] LABS: POTASSIUM 3.7 mmol/L (3.6-5.2)
[2016-09-30 06:52] LABS: BASO % 0.4 % (0.0-2.0); EOS # 0.2 K/uL (0.0-0.7); HEMATOCRIT 41.8 % (35.0-51.0); LYMPH # 1.1 K/uL (1.0-4.3); LYMPH % 15.2 % (20.0-40.0); MEAN CELL VOLUME 88.8 fL (80.0-94.0); MEAN CORPUSCULAR HEMOGLOBIN 30.5 pg (27.0-31.0); MEAN CORPUSCULAR HGB CONC 34.3 g/dL (33.0-37.0); MEAN PLATELET VOLUME 8.2 fL (7.2-11.7); MONO # 0.6 K/uL (0.0-0.8); MONO % 8.9 % (0.0-10.0); RED CELL DISTRIBUTION WIDTH 14.3 % (11.5-14.5); WHITE BLOOD COUNT 6.9 K/uL (4.8-10.8)
[2016-09-30 06:53] LABS: ALB/GLOB RATIO 1.5 (1.0-2.1); ALKALINE PHOSPHATASE 62 U/L (38-126); ALT/SGPT 24 U/L (21-72); AST/SGOT 18 U/L (17-59); BILIRUBIN,TOTAL 0.7 mg/dL (0.2-1.3); BLOOD UREA NITROGEN 27 mg/dL (9-20); CALCIUM 8.6 mg/dl (8.6-10.4); CARBON DIOXIDE 25 mmol/L (22-30); GFR AFRICAN-AMERICAN > 60; GLUCOSE,RANDOM 83 mg/dL (75-110); PHOSPHOROUS 3.7 mg/dL (2.5-4.5); TOTAL PROTEIN 6.2 g/dL (6.3-8.3)
[2016-09-30 06:54] LABS: MAGNESIUM 2.2 mg/dL (1.6-2.3)
[2016-09-30] MEDS: Dextrose 5%/0.45% NS 1,000 ML IV SCH (09:57)
[2016-09-30] MEDS: Pantoprazole 40 mg EC Tab PO SCH (09:57)
[2016-09-30] MEDS ORDERED: Sodium Chloride 0.9% 1,000 ML IV ONE (10:11)
--- NOTE | 2016-09-30 10:25 | CP.CCUPN ---
<Kathy Rothman - Last Filed: 09/30/16 10:19> CCU Subjective - Physician Review Subjective (Free Text): Patient was seen and examined. Denied any chest pain, shortness of breath, dizziness or sensation of syncope. Patient's heart rate ranging 60-77. Patient currently is asymptomatic. Patient is scheduled for pacemaker placement today with Dr. Benjamin (covering Dr. Yeboah). CCU Objective - Vital Signs / Intake & Output Vital Signs (Last 4 hours): Vital Signs Pulse Resp BP Pulse Ox 09/30/16 09:57 152/63 H 09/30/16 08:20 60 10 L 98 09/30/16 08:17 61 18 151/64 H 93 L 09/30/16 08:10 64 21 96 09/30/16 08:00 77 16 97 09/30/16 07:50 74 17 98 09/30/16 07:40 60 12 99 09/30/16 07:30 57 L 17 97 09/30/16 07:20 58 L 16 97 09/30/16 07:17 60 18 148/64 95 09/30/16 07:10 62 17 98 09/30/16 07:00 59 L 16 99 09/30/16 06:50 55 L 16 97 09/30/16 06:40 55 L 16 152/59 H 97 09/30/16 06:30 56 L 17 97 09/30/16 06:20 57 L 11 L Intake and Output (Last 8hrs): Intake & Output 09/29/16 09/30/16 09/30/16 22:59 06:59 14:59 Intake Total 820 290 0 Output Total 200 200 250 Balance 620 90 -250 Intake: Oral 820 290 0 Output: Urine 200 200 250 Urine, Voided 200 200 250 - Physical Exam Head: Positive for: Atraumatic, Normocephalic Pupils: Positive for: PERRL Extroacular Muscles: Positive for: EOMI Mouth: Positive for: Moist Mucous Membranes Respiratory/Chest: Positive for: Clear to Auscultation, Good Air Exchange Cardiovascular: Positive for: Regular Rate and Rhythm, Normal S1, S2 Abdomen: Positive for: Normal Bowel Sounds. Negative for: Tenderness, Distention Upper Extremity: Positive for: Normal Inspection, NORMAL PULSES. Negative for: Edema Lower Extremity: Positive for: Normal Inspection, NORMAL PULSES. Negative for: Edema, CALF TENDERNESS Neurological: Positive for: GCS=15, CN II-XII Intact, Speech Normal Skin: Positive for: Warm, Dry, Normal Color Psychiatric: Positive for: Alert, Oriented x 3 - Medications Active Medications: Active Medications Generic Name Dose Route Start Last Admin Trade Name Freq PRN Reason Stop Dose Admin Amlodipine Besylate 5 mg 09/29/16 10:00 09/30/16 09:57 Norvasc PO 5 mg DAILY ERIKA Administration Aspirin 81 mg 09/29/16 10:00 09/30/16 09:56 Ecotrin PO 81 mg DAILY ERIKA Administration Enalapril Maleate 5 mg 09/29/16 10:45 09/30/16 09:57 Vasotec PO 5 mg DAILY ERIKA Administration Heparin Sodium (Porcine) 5,000 units 09/28/16 22:00 09/30/16 05:52 Heparin SC Not Given Q8 ERIKA Dextrose/Sodium Chloride 1,000 mls @ 60 mls/hr 09/30/16 09:00 09/30/16 09:57 Dextrose 5%/0.45% Ns 1000 Ml IV 60 mls/hr .[id number] ERIKA Administration Sodium Chloride 1,000 mls @ 1,000 mls/hr 09/30/16 10:11 Sodium Chloride 0.9% IV 09/30/16 11:10 .Q1H ONE Levothyroxine Sodium 100 mcg 09/29/16 06:30 09/30/16 05:50 Synthroid PO 100 mcg DAILY@0630 ERIKA Administration Nitroglycerin 0.4 mg 09/28/16 14:57 Nitrostat Sl Tab SL Q5M PRN Pantoprazole Sodium 40 mg 09/29/16 10:00 09/30/16 09:57 Protonix Ec Tab PO 40 mg DAILY ERIKA Administration Rosuvastatin Calcium 5 mg 09/28/16 22:00 09/29/16 21:07 Crestor PO 5 mg HS ERIKA Administration Tamsulosin HCl 0.4 mg 09/29/16 10:00 09/30/16 09:56 Flomax PO 0.4 mg DAILY ERIKA Administration - Patient Studies Lab Studies: Lab Studies 09/30/16 09/30/16 Range/Units 06:33 06:32 WBC 6.9 (4.8-10.8) K/uL RBC 4.71 (4.40-5.90) Mil/uL Hgb 14.3 (12.0-18.0) g/dL Hct 41.8 (35.0-51.0) % MCV 88.8 (80.0-94.0) fL MCH 30.5 (27.0-31.0) pg MCHC 34.3 (33.0-37.0) g/dL RDW 14.3 (11.5-14.5) % Plt Count 144 (130-400) K/uL MPV 8.2 (7.2-11.7) fL Neut % (Auto) 72.5 (50.0-75.0) % Lymph % (Auto) 15.2 L (20.0-40.0) % Bowman % (Auto) 8.9 (0.0-10.0) % Eos % (Auto) 3.0 (0.0-4.0) % Baso % (Auto) 0.4 (0.0-2.0) % Neut # 5.0 (1.8-7.0) K/uL Lymph # 1.1 (1.0-4.3) K/uL Bowman # 0.6 (0.0-0.8) K/uL Eos # 0.2 (0.0-0.7) K/uL Baso # 0.0 (0.0-0.2) K/uL Sodium 141 (132-148) mmol/L Potassium 3.7 (3.6-5.2) mmol/L Chloride 106 (98-107) mmol/L Carbon Dioxide 25 (22-30) mmol/L Anion Gap 15 (10-20) BUN 27 H (9-20) mg/dL Creatinine 1.0 (0.8-1.5) MG/DL Est GFR ( Amer) > 60 Est GFR (Non-Af Amer) > 60 Random Glucose 83 (75-110) mg/dL Calcium 8.6 (8.6-10.4) mg/dl Phosphorus 3.7 (2.5-4.5) mg/dL Magnesium 2.2 (1.6-2.3) mg/dL Total Bilirubin 0.7 (0.2-1.3) mg/dL AST 18 (17-59) U/L ALT 24 (21-72) U/L Alkaline Phosphatase 62 (38-126) U/L Total Protein 6.2 L (6.3-8.3) g/dL Albumin 3.7 (3.5-5.0) g/dL Globulin 2.5 (2.2-3.9) gm/dL Albumin/Globulin Ratio 1.5 (1.0-2.1) Laboratory Results - last 24 hr 09/30/16 09/30/16 06:32 06:33 WBC 6.9 RBC 4.71 Hgb 14.3 Hct 41.8 MCV 88.8 MCH 30.5 MCHC 34.3 RDW 14.3 Plt Count 144 MPV 8.2 Neut % (Auto) 72.5 Lymph % (Auto) 15.2 L Bowman % (Auto) 8.9 Eos % (Auto) 3.0 Baso % (Auto) 0.4 Neut # 5.0 Lymph # 1.1 Bowman # 0.6 Eos # 0.2 Baso # 0.0 Sodium 141 Potassium 3.7 Chloride 106 Carbon Dioxide 25 Anion Gap 15 BUN 27 H Creatinine 1.0 Est GFR ( Amer) > 60 Est GFR (Non-Af Amer) > 60 Random Glucose 83 Calcium 8.6 Phosphorus 3.7 Magnesium 2.2 Total Bilirubin 0.7 AST 18 ALT 24 Alkaline Phosphatase 62 Total Protein 6.2 L Albumin 3.7 Globulin 2.5 Albumin/Globulin Ratio 1.5 Critical Care Progress Note - Nutrition Nutrition: Nutrition Category Date Time Status NPO Diet [DIET] Diets 09/30/16 Breakfast Active Assessment/Plan - Assessment and Plan (Free Text) Assessment: 89yo M. PMHx HTN, dyslipidemia, hypothyroidism, BPH, tonsillectomy, appendectomy , renal mass, CHF presented with chest pain and dizziness. Patient transferred to ICU for recurrent symptomatic bradycardia. Plan: Neuro: Alert and oriented 3 Pulm: No acute issues, breathing spontaneously on nasal cannula oxygen. CV: Hemodynamically stable. The patient transferred to ICU for cardiac monitoring, currently asymptomatic and not bradycardic. We will have atropine at bedside, patient placed on external pacer. Continue Norvasc and Vasotec for hx of HTN. Crestor for HLD. Cardiology consulted, Dr. Benjamin, placement of pacemaker scheduled for today. Hem: No acute issues Renal: Flomax for BPH. Renal mass seen on CT AB on 08/16, will follow up as outpatient with Dr. Patiño. No acute issues, urine output within normal limits , will monitor. Endo: Hypothyroidism, TSH/ T4 WNL. Continue levothyroxine po. GI: Heart healthy diet ID: No acute issues DVT proph - heparin subcutaneous GI proph - Protonix DW Lorna Crandall DO, PGY-1 <Kirk Hargrove S - Last Filed: 09/30/16 18:43> CCU Objective - Vital Signs / Intake & Output Vital Signs (Last 4 hours): Vital Signs Temp Pulse Resp BP Pulse Ox 09/30/16 18:30 67 17 94 L 09/30/16 18:21 76 17 132/66 94 L 09/30/16 18:20 74 16 95 09/30/16 18:10 71 16 93 L 09/30/16 18:00 68 14 96 09/30/16 17:58 70 18 118/62 94 L 09/30/16 17:50 71 13 96 09/30/16 17:40 79 15 94 L 09/30/16 17:30 71 14 96 09/30/16 17:28 72 11 L 124/64 93 L 09/30/16 17:25 72 13 118/64 93 L 09/30/16 17:20 74 10 L 96 09/30/16 17:10 74 13 144/63 86 L 09/30/16 17:00 73 17 95 09/30/16 16:55 65 13 133/64 92 L 09/30/16 16:50 71 15 96 09/30/16 16:41 69 24 130/67 94 L 09/30/16 16:40 65 11 L 90 L 09/30/16 16:35 66 139/66 94 L 09/30/16 16:32 67 09/30/16 16:00 97.9 F Intake and Output (Last 8hrs): Intake & Output 09/30/16 09/30/16 09/30/16 06:59 14:59 22:59 Intake Total 290 760 420 Output Total 200 1050 0 Balance 90 -290 420 Intake: IV 400 Intake, IV Amount 360 0 Left Antecubital 0 Left Wrist 360 0 Oral 290 0 420 Output: Urine 200 1050 0 Urine, Voided 200 1050 0 Other: # Bowel Movements 1 - Medications Active Medications: Active Medications Generic Name Dose Route Start Last Admin Trade Name Freq PRN Reason Stop Dose Admin Amlodipine Besylate 5 mg 09/29/16 10:00 09/30/16 09:57 Norvasc PO 5 mg DAILY ERIKA Administration Aspirin 81 mg 09/29/16 10:00 09/30/16 09:56 Ecotrin PO 81 mg DAILY ERIKA Administration Enalapril Maleate 5 mg 09/29/16 10:45 09/30/16 09:57 Vasotec PO 5 mg DAILY ERIKA Administration Heparin Sodium (Porcine) 5,000 units 09/28/16 22:00 09/30/16 13:10 Heparin SC Not Given Q8 ERIKA Dextrose/Sodium Chloride 1,000 mls @ 60 mls/hr 09/30/16 09:00 09/30/16 09:57 Dextrose 5%/0.45% Ns 1000 Ml IV 60 mls/hr .[id number] ERIKA Administration Levothyroxine Sodium 100 mcg 09/29/16 06:30 09/30/16 05:50 Synthroid PO 100 mcg DAILY@0630 ERIKA Administration Nitroglycerin 0.4 mg 09/28/16 14:57 Nitrostat Sl Tab SL Q5M PRN Pantoprazole Sodium 40 mg 09/29/16 10:00 09/30/16 09:57 Protonix Ec Tab PO 40 mg DAILY ERIKA Administration Rosuvastatin Calcium 5 mg 09/28/16 22:00 09/29/16 21:07 Crestor PO 5 mg HS ERIKA Administration Tamsulosin HCl 0.4 mg 09/29/16 10:00 09/30/16 09:56 Flomax PO 0.4 mg DAILY ERIKA Administration - Patient Studies Lab Studies: Lab Studies 09/30/16 09/30/16 Range/Units 06:33 06:32 WBC 6.9 (4.8-10.8) K/uL RBC 4.71 (4.40-5.90) Mil/uL Hgb 14.3 (12.0-18.0) g/dL Hct 41.8 (35.0-51.0) % MCV 88.8 (80.0-94.0) fL MCH 30.5 (27.0-31.0) pg MCHC 34.3 (33.0-37.0) g/dL RDW 14.3 (11.5-14.5) % Plt Count 144 (130-400) K/uL MPV 8.2 (7.2-11.7) fL Neut % (Auto) 72.5 (50.0-75.0) % Lymph % (Auto) 15.2 L (20.0-40.0) % Bowman % (Auto) 8.9 (0.0-10.0) % Eos % (Auto) 3.0 (0.0-4.0) % Baso % (Auto) 0.4 (0.0-2.0) % Neut # 5.0 (1.8-7.0) K/uL Lymph # 1.1 (1.0-4.3) K/uL Bowman # 0.6 (0.0-0.8) K/uL Eos # 0.2 (0.0-0.7) K/uL Baso # 0.0 (0.0-0.2) K/uL Sodium 141 (132-148) mmol/L Potassium 3.7 (3.6-5.2) mmol/L Chloride 106 (98-107) mmol/L Carbon Dioxide 25 (22-30) mmol/L Anion Gap 15 (10-20) BUN 27 H (9-20) mg/dL Creatinine 1.0 (0.8-1.5) MG/DL Est GFR ( Amer) > 60 Est GFR (Non-Af Amer) > 60 Random Glucose 83 (75-110) mg/dL Calcium 8.6 (8.6-10.4) mg/dl Phosphorus 3.7 (2.5-4.5) mg/dL Magnesium 2.2 (1.6-2.3) mg/dL Total Bilirubin 0.7 (0.2-1.3) mg/dL AST 18 (17-59) U/L ALT 24 (21-72) U/L Alkaline Phosphatase 62 (38-126) U/L Total Protein 6.2 L (6.3-8.3) g/dL Albumin 3.7 (3.5-5.0) g/dL Globulin 2.5 (2.2-3.9) gm/dL Albumin/Globulin Ratio 1.5 (1.0-2.1) Laboratory Results - last 24 hr 09/30/16 09/30/16 06:32 06:33 WBC 6.9 RBC 4.71 Hgb 14.3 Hct 41.8 MCV 88.8 MCH 30.5 MCHC 34.3 RDW 14.3 Plt Count 144 MPV 8.2 Neut % (Auto) 72.5 Lymph % (Auto) 15.2 L Bowman % (Auto) 8.9 Eos % (Auto) 3.0 Baso % (Auto) 0.4 Neut # 5.0 Lymph # 1.1 Bowman # 0.6 Eos # 0.2 Baso # 0.0 Sodium 141 Potassium 3.7 Chloride 106 Carbon Dioxide 25 Anion Gap 15 BUN 27 H Creatinine 1.0 Est GFR ( Amer) > 60 Est GFR (Non-Af Amer) > 60 Random Glucose 83 Calcium 8.6 Phosphorus 3.7 Magnesium 2.2 Total Bilirubin 0.7 AST 18 ALT 24 Alkaline Phosphatase 62 Total Protein 6.2 L Albumin 3.7 Globulin 2.5 Albumin/Globulin Ratio 1.5 Critical Care Progress Note - Nutrition Nutrition: Nutrition Category Date Time Status Heart Healthy Diet [DIET] Diets 09/30/16 Dinner Active Attending/Attestation - Attestation I have personally seen and examined this patient.: Yes I have fully participated in the care of the patient.: Yes I have reviewed all pertinent clinical information: Yes Notes (Text): 09/30/16 18:42 Patient seen and examined in the intensive care unit. Case discussed with STAFF in the morning rounds. S/p dual chamber PPM today ([employer]) for sick sinus syndrome Patient is stable
[2016-09-30] MEDS ORDERED: Bacitracin 50,000 UNIT in Sodium Chloride 0.9% Irrig 1,000 ML IR SCH (14:34)
[2016-09-30] MEDS ORDERED: Etomidate 20 mg/10ml Inj IV ONE (14:38)
[2016-09-30] MEDS ORDERED: Lidocaine 1% Inj (20ml) ONE (14:41)
[2016-09-30] MEDS ORDERED: Midazolam 2 MG/2 ML VIAL ONE (14:41)
[2016-09-30] MEDS ORDERED: ceFAZolin IV 2 gm in Dextrose 1 GM/50 ML BAG IVPB ONE (14:58)
--- NOTE | 2016-09-30 15:07 | CP.PCM.PN ---
Subjective - Date & Time of Evaluation Date of Evaluation: 09/30/16 Time of Evaluation: 12:30 - Subjective Subjective: This is a very pleasant 89 yo gentleman who was admitted on 09/28 with chest pain and then on 09/29 in the morning had an SYSTEM [employer]ID[employer]INE[employer] due to near syncope and found to have concerning for a slow heart rate and EKGs suggesting a second degree heart block and long pauses as well. Patient is pending pacemaker placement later today with Dr Benjamin. Currently patient reports he feels ok. He denied chest pain, denied shortness of breath, denied abdominal pain, on the telemetry his HR looked NSR in the 50s to 60s however there are a lot of telemetry strips and EKGs in his chart showing the pauses and what appears to be heart block. He also had an echo done yesterday. Cardiac enzymes have been negative, TSH also normal limits. Objective - Vital Signs/Intake and Output Vital Signs (last 24 hours): Temp Pulse Resp BP Pulse Ox 98.1 F 65 11 L 159/79 H 98 09/30/16 14:00 09/30/16 14:17 09/30/16 14:17 09/30/16 14:17 09/30/16 14:17 Intake and Output: 09/30/16 09/30/16 06:59 18:59 Intake Total 630 360 Output Total 400 1050 Balance 230 -690 - Medications Medications: Current Medications Amlodipine Besylate (Norvasc) 5 mg PO DAILY [facility] Last Admin: 09/30/16 09:57 Dose: 5 mg Aspirin (Ecotrin) 81 mg PO DAILY [facility] Last Admin: 09/30/16 09:56 Dose: 81 mg Enalapril Maleate (Vasotec) 5 mg PO DAILY [facility] Last Admin: 09/30/16 09:57 Dose: 5 mg Heparin Sodium (Porcine) (Heparin) 5,000 units SC Q8 [facility] Last Admin: 09/30/16 13:10 Dose: Not Given Dextrose/Sodium Chloride (Dextrose 5%/0.45% Ns 1000 Ml) 1,000 mls @ 60 mls/hr IV .[id number] [facility] Last Admin: 09/30/16 09:57 Dose: 60 mls/hr Bacitracin 50,000 unit/ Sodium (Chloride) 1,000 mls @ 1,000 mls/hr IR .Q1H ERIKA Stop: 09/30/16 15:33 Levothyroxine Sodium (Synthroid) 100 mcg PO DAILY@0630 [facility] Last Admin: 09/30/16 05:50 Dose: 100 mcg Nitroglycerin (Nitrostat Sl Tab) 0.4 mg SL Q5M PRN Pantoprazole Sodium (Protonix Ec Tab) 40 mg PO DAILY [facility] Last Admin: 09/30/16 09:57 Dose: 40 mg Rosuvastatin Calcium (Crestor) 5 mg PO HS [facility] Last Admin: 09/29/16 21:07 Dose: 5 mg Tamsulosin HCl (Flomax) 0.4 mg PO DAILY [facility] Last Admin: 09/30/16 09:56 Dose: 0.4 mg - Labs Labs: 09/30/16 06:32 09/30/16 06:33 PT 12.1 SECONDS (9.7-12.2) 09/29/16 06:06 INR 1.1 09/29/16 06:06 APTT 35 SECONDS (21-34) H 09/29/16 06:06 - Constitutional Appears: Non-toxic, No Acute Distress - Head Exam Head Exam: NORMAL INSPECTION - Eye Exam Eye Exam: EOMI, Normal appearance - ENT Exam ENT Exam: Mucous Membranes Moist - Respiratory Exam Respiratory Exam: Clear to Ausculation Bilateral, NORMAL BREATHING PATTERN - Cardiovascular Exam Cardiovascular Exam: REGULAR RHYTHM - GI/Abdominal Exam GI & Abdominal Exam: Soft, Normal Bowel Sounds - Neurological Exam Neurological Exam: Alert, Awake, Oriented x3 Neuro motor strength exam: Left Upper Extremity: 5, Right Upper Extremity: 5 - Psychiatric Exam Psychiatric exam: Normal Affect, Normal Mood - Skin Skin Exam: Normal Color, Warm Assessment and Plan - Assessment and Plan (Free Text) Assessment: (1) Bradycardia, heart pauses on telemetry, and possible heart block Assessment and Plan: 09/30: Patient is pending placement of pacermaker later today. He looked well at this time. He denied chest pain or shortness of breath, denied dizziness and denied weakness. Telemetry showed bradycardia 50's. Monitor at bedside shows HR as low as 30-40's with ME prolongation and dropped beats. IKER Q6H X3 were also negative. D. Dimer: 229, WNL. Cardio consult placed- Dr. Yeboah- help appreciated. (Dr. Benjamin covering) Aspirin 81 mg PO daily Crestor 5 mg PO daily 2L NC O2 (2) Chronic congestive heart failure, possible valvular disease Assessment and Plan: 09/30: Echo pending at this time. New echo pending, ECHO from 06/2015 shows LVH with EF >70 % with mild aortic regurg. Aspirin 81 mg Po daily Crestor 5 mg PO daily Vasotec daily (3) Hyperlipidemia Assessment and Plan: Crestor 5 mg PO daily (4) BPH (benign prostatic hyperplasia) Assessment and Plan: Flomax 0.4 mg PO daily (5) Hypothyroidism Assessment and Plan: Resume Home med: Synthroid 100 mcg daily 0.77 TSH in the AM (6) HTN (hypertension) Assessment and Plan: Cardio consult placed- Dr. Yeboah- help appreciated. Resume home meds: Amlodipine-Benazepril 5-10 mg (not on formulary, pharmacy to substitute) (7) Renal mass Assessment and Plan: Abd CT 07/2016 showed renal mass. Patient pending outpatient follow up with Dr. Patiño. Urology consult placed- Dr. Patiño- help appreciated. Status: Acute (8) Prophylactic measure Assessment and Plan: Protonix 40 mg PO daily Heparin 5000 SC Q8H
--- NOTE | 2016-09-30 15:40 | CARD ---
APPROVED REPORT EKG Measurement Heart [id number] 232P35 [id number] <Conclusion> Sinus bradycardia with 1st degree AV block Left axis deviation Anterior infarct, age undetermined Abnormal ECG
--- NOTE | 2016-09-30 15:45 | CARD ---
APPROVED REPORT EKG Measurement Heart [id number] VA 230P16 [id number] <Conclusion> Sinus rhythm with 1st degree AV block Left axis deviation Septal infarct, age undetermined Possible Lateral infarct, age undetermined Abnormal ECG
--- NOTE | 2016-09-30 15:47 | CARD ---
APPROVED REPORT EKG Measurement Heart [id number] LA 240P30 [id number] <Conclusion> Sinus rhythm with 1st degree AV block with premature atrial complexes Left axis deviation Anterolateral infarct, age undetermined Abnormal ECG
--- NOTE | 2016-09-30 16:26 | CP.PCM.PN ---
Subjective - Date & Time of Evaluation Date of Evaluation: 09/30/16 Time of Evaluation: 16:24 - Subjective Subjective: S/p dual chamber PPM today ([employer]) for sick sinus syndrome Feels well No complications Objective - Vital Signs/Intake and Output Vital Signs (last 24 hours): Temp Pulse Resp BP Pulse Ox 98.1 F 65 11 L 159/79 H 98 09/30/16 14:00 09/30/16 14:17 09/30/16 14:17 09/30/16 14:17 09/30/16 14:17 Intake and Output: 09/30/16 09/30/16 06:59 18:59 Intake Total 630 360 Output Total 400 1050 Balance 230 -690 - Medications Medications: Current Medications Amlodipine Besylate (Norvasc) 5 mg PO DAILY [facility] Last Admin: 09/30/16 09:57 Dose: 5 mg Aspirin (Ecotrin) 81 mg PO DAILY [facility] Last Admin: 09/30/16 09:56 Dose: 81 mg Enalapril Maleate (Vasotec) 5 mg PO DAILY [facility] Last Admin: 09/30/16 09:57 Dose: 5 mg Heparin Sodium (Porcine) (Heparin) 5,000 units SC Q8 [facility] Last Admin: 09/30/16 13:10 Dose: Not Given Dextrose/Sodium Chloride (Dextrose 5%/0.45% Ns 1000 Ml) 1,000 mls @ 60 mls/hr IV .[id number] [facility] Last Admin: 09/30/16 09:57 Dose: 60 mls/hr Levothyroxine Sodium (Synthroid) 100 mcg PO DAILY@0630 [facility] Last Admin: 09/30/16 05:50 Dose: 100 mcg Nitroglycerin (Nitrostat Sl Tab) 0.4 mg SL Q5M PRN Pantoprazole Sodium (Protonix Ec Tab) 40 mg PO DAILY [facility] Last Admin: 09/30/16 09:57 Dose: 40 mg Rosuvastatin Calcium (Crestor) 5 mg PO HS [facility] Last Admin: 09/29/16 21:07 Dose: 5 mg Tamsulosin HCl (Flomax) 0.4 mg PO DAILY [facility] Last Admin: 09/30/16 09:56 Dose: 0.4 mg - Labs Labs: 09/30/16 06:32 09/30/16 06:33 PT 12.1 SECONDS (9.7-12.2) 09/29/16 06:06 INR 1.1 09/29/16 06:06 APTT 35 SECONDS (21-34) H 09/29/16 06:06 - Constitutional Appears: Well - Head Exam Head Exam: ATRAUMATIC - Eye Exam Eye Exam: Normal appearance - ENT Exam ENT Exam: Mucous Membranes Moist - Neck Exam Neck Exam: Normal Inspection - Respiratory Exam Respiratory Exam: Clear to Ausculation Bilateral, NORMAL BREATHING PATTERN - Cardiovascular Exam Cardiovascular Exam: REGULAR RHYTHM, +S1, +S2 - Extremities Exam Extremities Exam: Normal Inspection - Neurological Exam Neurological Exam: Oriented x3 - Skin Skin Exam: Warm Assessment and Plan - Assessment and Plan (Free Text) Assessment: 1. Sick sinus syndrome -- Patient with syncope correlating to 4 second sinus pauses on tele 2. Dual chamber PPM implant today ([employer]) 3. Preserved LVEF by echo Plan: * Check CXR today * PPM interrogation tomorrow * Routine wound care of pacemaker site * Anticipate discharge home tomorrow from a pacemaker standpoint
--- NOTE | 2016-09-30 17:01 | RAD ---
HISTORY: s/p pacemaker COMPARISON: Chest x-ray performed 09/28/16 TECHNIQUE: Chest, one view. FINDINGS: Examination limited by habitus and hypoinflation. LUNGS: No focal consolidation. Please note that chest x-ray has limited sensitivity for the detection of pulmonary masses. PLEURA: No significant pleural effusion identified. No definite pneumothorax . CARDIOVASCULAR: Dual lead left-sided pacemaker. Distal leads terminate in the expected locations of the right atrium and right ventricle. Cardiomegaly. OSSEOUS STRUCTURES: Degenerative changes of the spine and shoulders. Acromioclavicular arthropathy. VISUALIZED UPPER ABDOMEN: Unremarkable. OTHER FINDINGS: None. IMPRESSION: Left-sided pacemaker. Cardiomegaly.
--- NOTE | 2016-09-30 17:55 | OP ---
PROCEDURE DATE: 09/30/2016 PHYSICIAN PERFORMING PROCEDURE: Barber Glover MD PROCEDURE PERFORMED: Dual chamber pacemaker implant. PREPROCEDURE DIAGNOSIS: Sick sinus syndrome. POSTPROCEDURE DIAGNOSIS: Sick sinus syndrome. DESCRIPTION OF PROCEDURE: The patient was brought to the operating room in a postabsorptive state. A timeout was performed and the correct patient and procedure were identified. The left shoulder was prepped and draped in usual sterile fashion. Next, 1% subcutaneous lidocaine was infiltrated into t he deltopectoral groove over the left shoulder. A 4 cm incision was made over the left shoulder near the deltopectoral groove. Using blunt dissection and electrocautery, a pocket for the pacemaker was formed at the level of the pectoralis fascia. The left cephalic vein was then exposed and isolated. The vein was accessed with a 16 gauge needle u sing a [employer] guidewire under fluoroscopic guidance. A 7-Fijian sheath was introduced over the wire into the subclavian vein via the left cephalic vein. A pacemaker lead was then advanced into 7-Frenc h sheath to the right ventricular apical septum under fluoroscopic guidance. Once parameters were me asured to satisfaction, the active fixation screw was advanced with parameters as measured below. Hi gh output pacing did not capture the diaphragm. The 7-Fijian sheath was then peeled and removed. Th e lead was sutured in place using a suture sleeve with 0 silk sutures x 2 under the pectoralis fascia . Next, using the externalized [employer] wire, another 7-Fijian sheath was used to provide venous access v ia the cephalic vein to the subclavian vein. A second pacemaker lead was then advanced via the 7 Alex nch sheath to the right atrial appendage position. The active fixation screw was advanced under fluo roscopic guidance with parameters as measured below. The lead was sutured in place using a suture sl eeve with 0 silk sutures x 2 under the pectoralis fascia. Careful attention was paid to hemostasis in the pocket. The pocket was irrigated with antibiotic em ution. The right atrial and right ventricular pacemaker leads were then attached to the pacemaker pu lse generator, and proper operation was confirmed. The leads and generator were then placed in the p ocket. A fluoroscopic survey was made of the pocket as well as the leads. The pocket was closed with 2 layers of 2-0 and 3-0 Vicryl running sutures. Dermabond was then applie d to the skin. The patient tolerated the procedure well without any complications. PACEMAKER DATA: 1. Pacemaker pulse generator is a [employer], model name Julia GARCÍA-1, model number L 311, serial #[id number]. 2. RA lead is [employer], [place]ank, model #7741, serial #[id number]. 3. RA sensing was 3.1 millivolts, pacing threshold 0.7 volts at 0.5 milliseconds, pacing impedance 6 57 ohms, with current of 1.1 milliamperes. 4. RV lead is [employer], Zank, model #7742, serial #[id number]. RV lead sensing was 25 mill ivolts, pacing threshold 0.3 volts at 0.5 milliseconds, pacing impedance 922 ohms, with current of 0. 4 milliamperes. 5. Final pacemaker mode is DDD 60-120 beats per minute. COMPLICATIONS: None. ESTIMATED BLOOD LOSS: 5 mL. CONCLUSIONS: Successful dual chamber pacemaker implant using [employer] system without any co mplications. Barber Glover MD cc: [id number] TT: 09/30/2016 17:54:39 stefano
--- NOTE | 2016-10-01 03:40 | CARD ---
APPROVED REPORT EXAM: Two-dimensional and M-mode echocardiogram with Doppler and color Doppler. Other Information Quality : GoodRhythm : NSR INDICATION Chest Pain Congestive Heart Failure RISK FACTORS Hypertension Hyperlipidemia M-Mode DIMENSIONS RVDd2.64 (2.1-3.2cm)Left Atrium (MM)4.78 (2.5-4.0cm) IVSd1.48 (0.7-1.1cm)Aortic Root3.71 (2.2-3.7cm) LVDd5.61 (4.0-5.6cm)Aortic Cusp Exc.2.64 (1.5-2.0cm) PWd1.69 (0.7-1.1cm)FS (%) 44 % LVDs3.13 (2.0-3.8cm)LVEF (%)75 (>50%) Aortic Valve AoV Peak Jfqqtsaa288.7cm/Herman Peak GR.8mmHgAI P 1/2 [id number] Mitral Valve MV E Qcczmmmb86.8cm/sMV A Aevumziz528.1cm/sE/A ratio0.7 TDI E/Lateral E'0.0E/Medial E'0.0 Tricuspid Valve TR Peak Hyzuvbgz048he/sTR Peak Gr.73eoKuZKMK61meAs LEFT VENTRICLE The left ventricle is normal size. There is moderate concentric left ventricular hypertrophy. Left ventricle systolic function is normal. The Ejection Fraction is >70%. There is normal LV segmental wall motion. Tissue Doppler imaging reveals abnormal left ventricular diastolic dysfunction. RIGHT VENTRICLE The right ventricle is normal size. There is normal right ventricular wall thickness. The right ventricular systolic function is normal. ATRIA The left atrium is mildly dilated. The right atrium size is normal. The interatrial septum is intact with no evidence for an atrial septal defect. AORTIC VALVE The aortic valve is normal in structure. No aortic regurgitation is present. There is no aortic valvular stenosis. There is no aortic valvular vegetation. MITRAL VALVE The mitral valve is normal in structure. There is no evidence of mitral valve prolapse. There is no mitral valve stenosis. There is no mitral valve regurgitation noted. TRICUSPID VALVE The tricuspid valve is normal in structure. There is mild tricuspid regurgitation. Right ventricular systolic pressure is estimated at 30-40 mmHg. There is mild pulmonary hypertension. PULMONIC VALVE The pulmonic valve is not well visualized. There is mild pulmonic valvular regurgitation. GREAT VESSELS The aortic root is normal in size. PERICARDIAL EFFUSION There is no significant pericardial effusion. <Conclusion> Left ventricle systolic function is normal. The Ejection Fraction is >70%. Hypertensive heart disease. Diastolic dysfunction. No aortic regurgitation is present. There is no mitral valve regurgitation noted. There is mild tricuspid regurgitation. There is mild pulmonary hypertension. There is mild pulmonic valvular regurgitation.
[2016-10-01] MEDS: Dextrose 5%/0.45% NS 1,000 ML IV SCH (05:40)
[2016-10-01] MEDS: Levothyroxine 100 MCG TAB PO SCH (05:44)
[2016-10-01 06:48] LABS: CHLORIDE 103 mmol/L (98-107); POTASSIUM 4.1 mmol/L (3.6-5.2); SODIUM 138 mmol/L (132-148)
[2016-10-01 06:50] LABS: ALB/GLOB RATIO 1.5 (1.0-2.1); ALKALINE PHOSPHATASE 66 U/L (38-126); AST/SGOT 24 U/L (17-59); BILIRUBIN,TOTAL 0.9 mg/dL (0.2-1.3); BLOOD UREA NITROGEN 27 mg/dL (9-20); CARBON DIOXIDE 22 mmol/L (22-30); GFR AFRICAN-AMERICAN > 60; TOTAL PROTEIN 6.8 g/dL (6.3-8.3)
[2016-10-01 06:51] LABS: ALT/SGPT 21 U/L (21-72); CALCIUM 8.4 mg/dl (8.6-10.4); GLUCOSE,RANDOM 89 mg/dL (75-110); MAGNESIUM 2.1 mg/dL (1.6-2.3); PHOSPHOROUS 3.3 mg/dL (2.5-4.5)
[2016-10-01 07:20] LABS: BASO % 0.3 % (0.0-2.0); EOS # 0.2 K/uL (0.0-0.7); EOS % 1.6 % (0.0-4.0); HEMATOCRIT 45.5 % (35.0-51.0); LYMPH # 1.1 K/uL (1.0-4.3); MEAN CELL VOLUME 89.4 fL (80.0-94.0); MEAN CORPUSCULAR HEMOGLOBIN 30.2 pg (27.0-31.0); MEAN CORPUSCULAR HGB CONC 33.8 g/dL (33.0-37.0); MEAN PLATELET VOLUME 8.5 fL (7.2-11.7); MONO # 0.8 K/uL (0.0-0.8); MONO % 7.5 % (0.0-10.0); NRBC % 0.5 % (0.0-2.0); WHITE BLOOD COUNT 10.5 K/uL (4.8-10.8)
--- NOTE | 2016-10-01 08:29 | PCM.URO ---
Urology Progress Note - Objective Lab Results Last 24 Hours: Laboratory Results - last 24 hr 10/01/16 10/01/16 06:29 06:29 WBC 10.5 D RBC 5.08 Hgb 15.4 Hct 45.5 MCV 89.4 MCH 30.2 MCHC 33.8 RDW 14.0 Plt Count 144 MPV 8.5 Neut % (Auto) 80.6 H Lymph % (Auto) 10.0 L Andrews % (Auto) 7.5 Eos % (Auto) 1.6 Baso % (Auto) 0.3 Neut # 8.5 H Lymph # 1.1 Andrews # 0.8 Eos # 0.2 Baso # 0.0 Sodium 138 Potassium 4.1 Chloride 103 Carbon Dioxide 22 Anion Gap 17 BUN 27 H Creatinine 0.8 Est GFR ( Amer) > 60 Est GFR (Non-Af Amer) > 60 Random Glucose 89 Calcium 8.4 L Phosphorus 3.3 Magnesium 2.1 Total Bilirubin 0.9 AST 24 ALT 21 Alkaline Phosphatase 66 Total Protein 6.8 Albumin 4.0 Globulin 2.7 Albumin/Globulin Ratio 1.5 Intake & Output: Intake & Output 09/30/16 10/01/16 10/01/16 18:59 06:59 18:59 Intake Total 1180 118 Output Total 1050 400 Balance 130 -282 Intake: IV 400 Intake, IV Amount 360 Left Antecubital 0 Left Wrist 360 Oral 420 118 Output: Urine 1050 400 Urine, Voided 1050 400 Stool 0 Other: # Voids Urine, Voided 1 # Bowel Movements 1 1 Vital Signs: Vital Signs - 24 hr 09/30/16 09/30/16 09/30/16 08:30 08:40 08:50 Temperature Pulse Rate 62 60 59 L Respiratory Rate Blood Pressure O2 Sat by Pulse 96 94 L 95 Oximetry 09/30/16 09/30/16 09/30/16 09:00 09:10 09:17 Temperature Pulse Rate 68 60 60 Respiratory Rate Blood Pressure 152/63 H O2 Sat by Pulse 95 93 L 94 L Oximetry 09/30/16 09/30/16 09/30/16 09:20 09:30 09:40 Temperature Pulse Rate 61 60 60 Respiratory 18 Rate Blood Pressure O2 Sat by Pulse 94 L 97 95 Oximetry 09/30/16 09/30/16 09/30/16 09:50 09:57 10:00 Temperature Pulse Rate 59 L 62 Respiratory 15 14 Rate Blood Pressure 152/63 H O2 Sat by Pulse 94 L 97 Oximetry 09/30/16 09/30/16 09/30/16 10:10 10:17 10:20 Temperature Pulse Rate 57 L 59 L 58 L Respiratory 14 18 18 Rate Blood Pressure 152/66 H O2 Sat by Pulse 97 95 98 Oximetry 09/30/16 09/30/16 09/30/16 10:30 10:40 10:50 Temperature Pulse Rate 57 L 59 L 57 L Respiratory 17 18 15 Rate Blood Pressure O2 Sat by Pulse 99 100 99 Oximetry 09/30/16 09/30/16 09/30/16 11:00 11:10 11:17 Temperature Pulse Rate 60 61 60 Respiratory 14 15 16 Rate Blood Pressure 150/63 O2 Sat by Pulse 100 99 99 Oximetry 09/30/16 09/30/16 09/30/16 11:20 11:30 11:40 Temperature Pulse Rate 60 59 L 57 L Respiratory 17 17 17 Rate Blood Pressure O2 Sat by Pulse 99 98 99 Oximetry 09/30/16 09/30/16 09/30/16 11:50 12:00 12:10 Temperature 98.2 F Pulse Rate 59 L 70 61 Respiratory 17 22 15 Rate Blood Pressure O2 Sat by Pulse 99 98 98 Oximetry 09/30/16 09/30/16 09/30/16 12:17 12:20 12:30 Temperature Pulse Rate 61 60 62 Respiratory 15 14 10 L Rate Blood Pressure 155/61 H O2 Sat by Pulse 99 98 99 Oximetry 09/30/16 09/30/16 09/30/16 12:40 12:50 13:00 Temperature Pulse Rate 68 64 66 Respiratory 12 17 12 Rate Blood Pressure O2 Sat by Pulse 98 96 100 Oximetry 09/30/16 09/30/16 09/30/16 13:10 13:17 13:20 Temperature Pulse Rate 64 64 66 Respiratory 10 L 15 12 Rate Blood Pressure 155/67 H O2 Sat by Pulse 100 97 99 Oximetry 09/30/16 09/30/16 09/30/16 13:30 13:40 13:50 Temperature Pulse Rate 65 66 64 Respiratory 12 18 16 Rate Blood Pressure O2 Sat by Pulse 99 98 98 Oximetry 09/30/16 09/30/16 09/30/16 14:00 14:10 14:17 Temperature 98.1 F Pulse Rate 65 67 65 Respiratory 18 17 11 L Rate Blood Pressure 159/79 H O2 Sat by Pulse 98 98 98 Oximetry 09/30/16 09/30/16 09/30/16 14:20 14:30 16:00 Temperature 97.9 F Pulse Rate 67 88 Respiratory 12 20 Rate Blood Pressure O2 Sat by Pulse 98 Oximetry 09/30/16 09/30/16 09/30/16 16:32 16:35 16:40 Temperature Pulse Rate 67 66 65 Respiratory 11 L Rate Blood Pressure 139/66 O2 Sat by Pulse 94 L 90 L Oximetry 09/30/16 09/30/16 09/30/16 16:41 16:50 16:55 Temperature Pulse Rate 69 71 65 Respiratory 24 15 13 Rate Blood Pressure 130/67 133/64 O2 Sat by Pulse 94 L 96 92 L Oximetry 09/30/16 09/30/16 09/30/16 17:00 17:10 17:20 Temperature Pulse Rate 73 74 74 Respiratory 17 13 10 L Rate Blood Pressure 144/63 O2 Sat by Pulse 95 86 L 96 Oximetry 09/30/16 09/30/16 09/30/16 17:25 17:28 17:30 Temperature Pulse Rate 72 72 71 Respiratory 13 11 L 14 Rate Blood Pressure 118/64 124/64 O2 Sat by Pulse 93 L 93 L 96 Oximetry 09/30/16 09/30/16 09/30/16 17:40 17:50 17:58 Temperature Pulse Rate 79 71 70 Respiratory 15 13 18 Rate Blood Pressure 118/62 O2 Sat by Pulse 94 L 96 94 L Oximetry 09/30/16 09/30/16 09/30/16 18:00 18:10 18:20 Temperature Pulse Rate 68 71 74 Respiratory 14 16 16 Rate Blood Pressure O2 Sat by Pulse 96 93 L 95 Oximetry 09/30/16 09/30/16 09/30/16 18:21 18:30 19:00 Temperature Pulse Rate 76 67 97 H Respiratory 17 17 26 H Rate Blood Pressure 132/66 O2 Sat by Pulse 94 L 94 L 93 L Oximetry 09/30/16 09/30/16 09/30/16 19:21 20:00 20:21 Temperature Pulse Rate 68 89 69 Respiratory 18 19 18 Rate Blood Pressure 140/64 143/66 O2 Sat by Pulse 94 L 90 L 95 Oximetry 09/30/16 09/30/16 09/30/16 21:00 21:21 22:21 Temperature Pulse Rate 62 63 64 Respiratory 18 11 L 19 Rate Blood Pressure 158/68 H 152/65 H O2 Sat by Pulse 94 L 97 96 Oximetry 09/30/16 10/01/16 10/01/16 23:21 00:21 01:21 Temperature Pulse Rate 67 66 65 Respiratory 11 L 19 17 Rate Blood Pressure 168/66 H 164/71 H 163/71 H O2 Sat by Pulse 97 94 L 94 L Oximetry 10/01/16 10/01/16 10/01/16 02:21 03:21 04:21 Temperature Pulse Rate 66 66 68 Respiratory 18 17 17 Rate Blood Pressure 141/66 126/62 124/70 O2 Sat by Pulse 97 94 L Oximetry 10/01/16 05:21 Temperature Pulse Rate Respiratory Rate Blood Pressure 106/64 O2 Sat by Pulse Oximetry
[2016-10-01] MEDS: Pantoprazole 40 mg EC Tab PO SCH (09:41)
--- NOTE | 2016-10-01 11:52 | RAD ---
PROCEDURE: Intraoperative Fluoroscopy. HISTORY: SLOW HEART RHYTHM FINDINGS: Fluoroscopic assistance was provided for pacemaker placement. Please refer to the operative report from operating physician.
--- NOTE | 2016-10-01 14:01 | CP.CCUPN ---
Addendum entered and electronically signed by Kathy Rothman DO 10/01/16 14:23 : Patient became orthostatic hypotensive - started on NS @100 cc/hr. DC Norvasc and reduced Vasotec from 5 to 2.5mg PO daily. Original Note: <Kathy Rothman - Last Filed: 10/01/16 13:58> CCU Subjective - Physician Review Subjective (Free Text): Patient was seen and examined. S/P Pacemaker POD #1; pacemaker was interrogated ; functioning well. Pain is well controlled. Patient had an episode of nonbloody diarrhea before the OR and another episode this morning. Stool studies ordered. Patient is transferred to MED/SURG CCU Objective - Vital Signs / Intake & Output Intake and Output (Last 8hrs): Intake & Output 09/30/16 10/01/16 10/01/16 22:59 06:59 14:59 Intake Total 538 0 100 Output Total 400 0 0 Balance 138 0 100 Intake: Intake, IV Amount 0 Left Antecubital 0 Left Wrist 0 Oral 538 0 100 Output: Urine 400 0 0 Urine, Voided 400 0 0 Stool 0 0 Other: # Voids Urine, Voided 1 # Bowel Movements 1 1 - Physical Exam Head: Positive for: Atraumatic, Normocephalic Pupils: Positive for: PERRL Extroacular Muscles: Positive for: EOMI Mouth: Positive for: Moist Mucous Membranes Respiratory/Chest: Positive for: Clear to Auscultation, Good Air Exchange Cardiovascular: Positive for: Regular Rate and Rhythm, Normal S1, S2 Abdomen: Positive for: Normal Bowel Sounds. Negative for: Tenderness, Distention Upper Extremity: Positive for: Normal Inspection, NORMAL PULSES. Negative for: Edema Lower Extremity: Positive for: Normal Inspection, NORMAL PULSES. Negative for: Edema, CALF TENDERNESS Neurological: Positive for: GCS=15, CN II-XII Intact, Speech Normal Skin: Positive for: Warm, Dry, Normal Color Psychiatric: Positive for: Alert, Oriented x 3 - Medications Active Medications: Active Medications Generic Name Dose Route Start Last Admin Trade Name Freq PRN Reason Stop Dose Admin Acetaminophen 650 mg 09/30/16 19:55 09/30/16 20:13 Tylenol 325mg Tab PO 650 mg Q6 PRN Administration Pain, Mild (1-3) Amlodipine Besylate 5 mg 09/29/16 10:00 10/01/16 09:42 Norvasc PO 5 mg DAILY ERIKA Administration Aspirin 81 mg 09/29/16 10:00 10/01/16 09:41 Ecotrin PO 81 mg DAILY ERIKA Administration Enalapril Maleate 5 mg 09/29/16 10:45 10/01/16 09:41 Vasotec PO 5 mg DAILY ERIKA Administration Heparin Sodium (Porcine) 5,000 units 09/28/16 22:00 09/30/16 13:10 Heparin SC Not Given Q8 ERIKA Levothyroxine Sodium 100 mcg 09/29/16 06:30 10/01/16 05:44 Synthroid PO 100 mcg DAILY@0630 ERIKA Administration Nitroglycerin 0.4 mg 09/28/16 14:57 Nitrostat Sl Tab SL Q5M PRN Pantoprazole Sodium 40 mg 09/29/16 10:00 10/01/16 09:41 Protonix Ec Tab PO 40 mg DAILY ERIKA Administration Rosuvastatin Calcium 5 mg 09/28/16 22:00 09/30/16 21:39 Crestor PO 5 mg HS ERIKA Administration Tamsulosin HCl 0.4 mg 09/29/16 10:00 10/01/16 09:41 Flomax PO 0.4 mg DAILY ERIKA Administration - Patient Studies Lab Studies: Lab Studies 10/01/16 10/01/16 Range/Units 06:29 06:29 WBC 10.5 D (4.8-10.8) K/uL RBC 5.08 (4.40-5.90) Mil/uL Hgb 15.4 (12.0-18.0) g/dL Hct 45.5 (35.0-51.0) % MCV 89.4 (80.0-94.0) fL MCH 30.2 (27.0-31.0) pg MCHC 33.8 (33.0-37.0) g/dL RDW 14.0 (11.5-14.5) % Plt Count 144 (130-400) K/uL MPV 8.5 (7.2-11.7) fL Neut % (Auto) 80.6 H (50.0-75.0) % Lymph % (Auto) 10.0 L (20.0-40.0) % [place] % (Auto) 7.5 (0.0-10.0) % Eos % (Auto) 1.6 (0.0-4.0) % Baso % (Auto) 0.3 (0.0-2.0) % Neut # 8.5 H (1.8-7.0) K/uL Lymph # 1.1 (1.0-4.3) K/uL [place] # 0.8 (0.0-0.8) K/uL Eos # 0.2 (0.0-0.7) K/uL Baso # 0.0 (0.0-0.2) K/uL Sodium 138 (132-148) mmol/L Potassium 4.1 (3.6-5.2) mmol/L Chloride 103 (98-107) mmol/L Carbon Dioxide 22 (22-30) mmol/L Anion Gap 17 (10-20) BUN 27 H (9-20) mg/dL Creatinine 0.8 (0.8-1.5) MG/DL Est GFR ( Amer) > 60 Est GFR (Non-Af Amer) > 60 Random Glucose 89 (75-110) mg/dL Calcium 8.4 L (8.6-10.4) mg/dl Phosphorus 3.3 (2.5-4.5) mg/dL Magnesium 2.1 (1.6-2.3) mg/dL Total Bilirubin 0.9 (0.2-1.3) mg/dL AST 24 (17-59) U/L ALT 21 (21-72) U/L Alkaline Phosphatase 66 (38-126) U/L Total Protein 6.8 (6.3-8.3) g/dL Albumin 4.0 (3.5-5.0) g/dL Globulin 2.7 (2.2-3.9) gm/dL Albumin/Globulin Ratio 1.5 (1.0-2.1) Laboratory Results - last 24 hr 10/01/16 10/01/16 06:29 06:29 WBC 10.5 D RBC 5.08 Hgb 15.4 Hct 45.5 MCV 89.4 MCH 30.2 MCHC 33.8 RDW 14.0 Plt Count 144 MPV 8.5 Neut % (Auto) 80.6 H Lymph % (Auto) 10.0 L [place] % (Auto) 7.5 Eos % (Auto) 1.6 Baso % (Auto) 0.3 Neut # 8.5 H Lymph # 1.1 [place] # 0.8 Eos # 0.2 Baso # 0.0 Sodium 138 Potassium 4.1 Chloride 103 Carbon Dioxide 22 Anion Gap 17 BUN 27 H Creatinine 0.8 Est GFR ( Amer) > 60 Est GFR (Non-Af Amer) > 60 Random Glucose 89 Calcium 8.4 L Phosphorus 3.3 Magnesium 2.1 Total Bilirubin 0.9 AST 24 ALT 21 Alkaline Phosphatase 66 Total Protein 6.8 Albumin 4.0 Globulin 2.7 Albumin/Globulin Ratio 1.5 Critical Care Progress Note - Nutrition Nutrition: Nutrition Category Date Time Status Heart Healthy Diet [DIET] Diets 09/30/16 Dinner Active Assessment/Plan - Assessment and Plan (Free Text) Assessment: 89yo M. PMHx HTN, dyslipidemia, hypothyroidism, BPH, tonsillectomy, appendectomy , renal mass, CHF presented with chest pain and dizziness. Patient transferred to ICU for recurrent symptomatic bradycardia. s/p pacemaker placement POD #1 Plan: Neuro: Alert and oriented 3 Pulm: No acute issues, breathing spontaneously on nasal cannula. CV: Hemodynamically stable. The patient transferred to ICU for cardiac monitoring, currently asymptomatic and not bradycardic. We will have atropine at bedside, patient placed on external pacer. Continue Norvasc and Vasotec for hx of HTN. Crestor for HLD. Cardiology consulted, Dr. Benjamin, s/p pacemaker placement POD #1; pacemaker was interrogated; functioning well Hem: No acute issues Renal: Flomax for BPH. Renal mass seen on CT AB on 08/16, will follow up as outpatient with Dr. Patiño. No acute issues, urine output within normal limits , will monitor. Endo: Hypothyroidism, TSH/ T4 WNL. Continue levothyroxine po. GI: Heart healthy diet; x2 episodes of nonbloody diarrhea - stool cultures ordered - follow up ID: No acute issues DVT proph - heparin subcutaneous GI proph - Protonix Patient is transferred to MED/SURG [facility] Lorna Luna DO, PGY-1 <Nguyễn Gu - Last Filed: 10/01/16 19:09> CCU Subjective - Physician Review Critical Care Time Spent (in minutes): 45 CCU Objective - Vital Signs / Intake & Output Vital Signs (Last 4 hours): Vital Signs Temp Pulse Resp BP Pulse Ox 10/01/16 16:00 97.6 F 84 20 126/83 99 Intake and Output (Last 8hrs): Intake & Output 10/01/16 10/01/16 10/01/16 06:59 14:59 22:59 Intake Total 0 100 780 Output Total 0 0 650 Balance 0 100 130 Intake: Intake, IV Amount 400 Left Antecubital 400 Oral 0 100 380 Output: Urine 0 0 650 Urine, Voided 0 0 650 Stool 0 Other: # Bowel Movements 1 - Medications Active Medications: Active Medications Generic Name Dose Route Start Last Admin Trade Name Freq PRN Reason Stop Dose Admin Acetaminophen 650 mg 09/30/16 19:55 09/30/16 20:13 Tylenol 325mg Tab PO 650 mg Q6 PRN Administration Pain, Mild (1-3) Aspirin 81 mg 09/29/16 10:00 10/01/16 09:41 Ecotrin PO 81 mg DAILY ERIKA Administration Enalapril Maleate 2.5 mg 10/02/16 10:00 Vasotec PO DAILY ERIKA Heparin Sodium (Porcine) 5,000 units 09/28/16 22:00 10/01/16 13:55 Heparin SC Not Given Q8 ERIKA Sodium Chloride 1,000 mls @ 100 mls/hr 10/01/16 14:30 10/01/16 14:42 Sodium Chloride 0.9% IV 100 mls/hr .Q10H ERIKA Administration Levothyroxine Sodium 100 mcg 09/29/16 06:30 10/01/16 05:44 Synthroid PO 100 mcg DAILY@0630 ERIKA Administration Pantoprazole Sodium 40 mg 09/29/16 10:00 10/01/16 09:41 Protonix Ec Tab PO 40 mg DAILY ERIKA Administration Rosuvastatin Calcium 5 mg 09/28/16 22:00 09/30/16 21:39 Crestor PO 5 mg HS ERIKA Administration Tamsulosin HCl 0.4 mg 09/29/16 10:00 10/01/16 09:41 Flomax PO 0.4 mg DAILY ERIKA Administration - Patient Studies Lab Studies: Lab Studies 10/01/16 10/01/16 Range/Units 06:29 06:29 WBC 10.5 D (4.8-10.8) K/uL RBC 5.08 (4.40-5.90) Mil/uL Hgb 15.4 (12.0-18.0) g/dL Hct 45.5 (35.0-51.0) % MCV 89.4 (80.0-94.0) fL MCH 30.2 (27.0-31.0) pg MCHC 33.8 (33.0-37.0) g/dL RDW 14.0 (11.5-14.5) % Plt Count 144 (130-400) K/uL MPV 8.5 (7.2-11.7) fL Neut % (Auto) 80.6 H (50.0-75.0) % Lymph % (Auto) 10.0 L (20.0-40.0) % [place] % (Auto) 7.5 (0.0-10.0) % Eos % (Auto) 1.6 (0.0-4.0) % Baso % (Auto) 0.3 (0.0-2.0) % Neut # 8.5 H (1.8-7.0) K/uL Lymph # 1.1 (1.0-4.3) K/uL [place] # 0.8 (0.0-0.8) K/uL Eos # 0.2 (0.0-0.7) K/uL Baso # 0.0 (0.0-0.2) K/uL Sodium 138 (132-148) mmol/L Potassium 4.1 (3.6-5.2) mmol/L Chloride 103 (98-107) mmol/L Carbon Dioxide 22 (22-30) mmol/L Anion Gap 17 (10-20) BUN 27 H (9-20) mg/dL Creatinine 0.8 (0.8-1.5) MG/DL Est GFR ( Amer) > 60 Est GFR (Non-Af Amer) > 60 Random Glucose 89 (75-110) mg/dL Calcium 8.4 L (8.6-10.4) mg/dl Phosphorus 3.3 (2.5-4.5) mg/dL Magnesium 2.1 (1.6-2.3) mg/dL Total Bilirubin 0.9 (0.2-1.3) mg/dL AST 24 (17-59) U/L ALT 21 (21-72) U/L Alkaline Phosphatase 66 (38-126) U/L Total Protein 6.8 (6.3-8.3) g/dL Albumin 4.0 (3.5-5.0) g/dL Globulin 2.7 (2.2-3.9) gm/dL Albumin/Globulin Ratio 1.5 (1.0-2.1) Laboratory Results - last 24 hr 10/01/16 10/01/16 06:29 06:29 WBC 10.5 D RBC 5.08 Hgb 15.4 Hct 45.5 MCV 89.4 MCH 30.2 MCHC 33.8 RDW 14.0 Plt Count 144 MPV 8.5 Neut % (Auto) 80.6 H Lymph % (Auto) 10.0 L [place] % (Auto) 7.5 Eos % (Auto) 1.6 Baso % (Auto) 0.3 Neut # 8.5 H Lymph # 1.1 [place] # 0.8 Eos # 0.2 Baso # 0.0 Sodium 138 Potassium 4.1 Chloride 103 Carbon Dioxide 22 Anion Gap 17 BUN 27 H Creatinine 0.8 Est GFR ( Amer) > 60 Est GFR (Non-Af Amer) > 60 Random Glucose 89 Calcium 8.4 L Phosphorus 3.3 Magnesium 2.1 Total Bilirubin 0.9 AST 24 ALT 21 Alkaline Phosphatase 66 Total Protein 6.8 Albumin 4.0 Globulin 2.7 Albumin/Globulin Ratio 1.5 EKG/Cardiology Studies: Cardiology / EKG Studies 10/01/16 14:16 ELECTROCARDIOGRAM Stat Comment: Mode Of Transportation: Reason For Exam: dizziness Critical Care Progress Note - Nutrition Nutrition: Nutrition Category Date Time Status Heart Healthy Diet [DIET] Diets 09/30/16 Dinner Active Attending/Attestation - Attestation I have personally seen and examined this patient.: Yes I have fully participated in the care of the patient.: Yes I have reviewed all pertinent clinical information: Yes Notes (Text): 10/01/16 19:09 doing well discussed during rounds agree with assessment and plan
--- NOTE | 2016-10-01 14:04 | CARD ---
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
--- NOTE | 2016-10-01 14:06 | CARD ---
APPROVED REPORT EKG Measurement Heart [id number] TN [id number] <Conclusion> Sinus bradycardia with 1st degree AV block Left axis deviation Anterolateral infarct, age undetermined Abnormal ECG
[2016-10-01] MEDS: Sodium Chloride 0.9% 1,000 ML IV SCH (14:42)
--- NOTE | 2016-10-01 16:43 | CON ---
DATE: 09/30/2016 REASON FOR CONSULTATION: Renal mass. HISTORY OF PRESENT ILLNESS: A very pleasant 89-year-old gentleman, he is actually almost 89, [birth year] is his date of . He has been admitted to the hospital with chest pain. From urology standpoin t, he is well known to me actually. I have had a chance to review my records but I will review on license of [facility]. He was in our office last time about a month ago or so. I have to review the exact dates and on an ultrasound, we saw a renal mass and we were getting a CT scan. That CT scan is dated from the [place] of July of 2016 and it showed a renal mass. See below listed plans. PAST MEDICAL AND SURGICAL HISTORY: As listed on the chart. REVIEW OF SYSTEMS: Listed above. PHYSICAL EXAMINATION: GENERAL: Well-nourished male. He is currently actually in the intensive care unit pending pacemaker status. VITAL SIGNS: Within normal limits, included in the chart. The physical exam is otherwise unremarkable from a urology standpoint. Rectal exam was deferred for now. DIAGNOSIS: Renal mass. PLAN: As follows: We are going to observe the patient for now. Once we review the records exactly for further details and then see further plans. But, for now, observation and no intervention. Thank you for the urology consult. Justin Patiño MD cc: [phone] TT: 10/01/2016 16:42:49 Confirmation # [id number] Dictation # [id number]
--- NOTE | 2016-10-01 16:58 | PN ---
DATE: 10/01/2016 See the previously dictated consult note. See the progress notes on the chart from the other doctors . From a urology standpoint, the patient is currently resting comfortably in the ICU status post pacema ker insertion. He has a renal mass. PAST MEDICAL AND SURGICAL HISTORY: Otherwise unchanged. PHYSICAL EXAMINATION: Otherwise unchanged. DIAGNOSIS: Renal mass. The question about whether it is cystic, solid all being evaluated, but for now, there is nothing we would do urology astorga. I will discuss this with the patient and will have outpatient followup. I di scussed with the patient for now for sure he is not bleeding, he is not having pain, so we are going to observe and not make any intervention. We will follow along and then outpatient followup. Justin Patiño MD cc: [phone] TT: 10/01/2016 16:57:33 Confirmation # [id number] Dictation # [id number]
[2016-10-01 22:37] LABS: INR 1.1
[2016-10-02] MEDS: Sodium Chloride 0.9% 1,000 ML IV SCH ×2 (02:35→10:30)
[2016-10-02] MEDS ORDERED: Oxycodone/Acetaminophen 5/325 mg Tab PO ONE (03:00)
[2016-10-02] MEDS: Levothyroxine 100 MCG TAB PO SCH (06:25)
[2016-10-02 07:07] LABS: BASO % 0.4 % (0.0-2.0); EOS # 0.2 K/uL (0.0-0.7); EOS % 2.2 % (0.0-4.0); LYMPH # 1.1 K/uL (1.0-4.3); LYMPH % 15.7 % (20.0-40.0); MEAN CELL VOLUME 89.9 fL (80.0-94.0); MEAN CORPUSCULAR HEMOGLOBIN 30.7 pg (27.0-31.0); MEAN CORPUSCULAR HGB CONC 34.1 g/dL (33.0-37.0); MONO # 0.7 K/uL (0.0-0.8); MONO % 10.3 % (0.0-10.0); WHITE BLOOD COUNT 7.2 K/uL (4.8-10.8)
[2016-10-02 07:27] LABS: CHLORIDE 105 mmol/L (98-107)
[2016-10-02 07:28] LABS: SODIUM 141 mmol/L (132-148)
[2016-10-02 07:30] LABS: BILIRUBIN,TOTAL 0.7 mg/dL (0.2-1.3); CARBON DIOXIDE 28 mmol/L (22-30); GFR AFRICAN-AMERICAN > 60
[2016-10-02 07:31] LABS: ALB/GLOB RATIO 1.4 (1.0-2.1); ALKALINE PHOSPHATASE 56 U/L (38-126); ALT/SGPT 23 U/L (21-72); AST/SGOT 21 U/L (17-59); BLOOD UREA NITROGEN 23 mg/dL (9-20); CALCIUM 8.1 mg/dl (8.6-10.4); GLUCOSE,RANDOM 81 mg/dL (75-110); PHOSPHOROUS 3.3 mg/dL (2.5-4.5); TOTAL PROTEIN 6.2 g/dL (6.3-8.3)
[2016-10-02 07:32] LABS: MAGNESIUM 2.2 mg/dL (1.6-2.3)
[2016-10-02] MEDS: Pantoprazole 40 mg EC Tab PO SCH (09:25)
--- NOTE | 2016-10-02 09:32 | CP.PCM.PN ---
<Carol Alberts - Last Filed: 10/02/16 17:59> Subjective - Date & Time of Evaluation Date of Evaluation: 10/02/16 Time of Evaluation: 09:20 - Subjective Subjective: Patient seen and examined at bedside. Patient is resting comfortably at bedside. He states he feels tired and weak since undergoing the pacemaker placement. He also complains of pain to his left chest and arm, exacerbated with pressure to area. Patient denies chest pain, shortness of breath, abdominal pain, nausea, vomiting, and constipation. He admits to having soft stools x2 days. Patient to be transferred from ICU to telemetry floor. Objective - Vital Signs/Intake and Output Vital Signs (last 24 hours): Temp Pulse Resp BP Pulse Ox 97.1 F L 88 20 128/61 94 L 10/02/16 08:00 10/02/16 08:00 10/02/16 08:00 10/02/16 08:00 10/02/16 08:00 Intake and Output: 10/02/16 10/02/16 06:59 18:59 Intake Total 1872 600 Output Total 1150 280 Balance 722 320 - Medications Medications: Current Medications Acetaminophen (Tylenol 325mg Tab) 650 mg PO Q6 PRN PRN Reason: Pain, Mild (1-3) Last Admin: 10/01/16 23:24 Dose: 650 mg Aspirin (Ecotrin) 81 mg PO DAILY [facility] Last Admin: 10/01/16 09:41 Dose: 81 mg Enalapril Maleate (Vasotec) 2.5 mg PO DAILY [facility] Sodium Chloride (Sodium Chloride 0.9%) 1,000 mls @ 100 mls/hr IV .Q10H [facility] Last Admin: 10/02/16 02:35 Dose: 100 mls/hr Ceftazidime 1 gm/ Sodium (Chloride) 100 mls @ 200 mls/hr IV Q8H [facility] Last Admin: 10/02/16 06:24 Dose: 200 mls/hr Levothyroxine Sodium (Synthroid) 100 mcg PO DAILY@0630 [facility] Last Admin: 10/02/16 06:25 Dose: 100 mcg Pantoprazole Sodium (Protonix Ec Tab) 40 mg PO DAILY [facility] Last Admin: 10/01/16 09:41 Dose: 40 mg Rosuvastatin Calcium (Crestor) 5 mg PO HS [facility] Last Admin: 10/01/16 23:24 Dose: 5 mg Tamsulosin HCl (Flomax) 0.4 mg PO DAILY [facility] Last Admin: 10/01/16 09:41 Dose: 0.4 mg - Labs Labs: 10/02/16 06:59 10/02/16 06:59 PT 11.8 SECONDS (9.7-12.2) 10/01/16 22:20 INR 1.1 10/01/16 22:20 APTT 33 SECONDS (21-34) 10/01/16 22:20 - Constitutional Appears: Non-toxic, No Acute Distress - Head Exam Head Exam: ATRAUMATIC, NORMAL INSPECTION, NORMOCEPHALIC - Eye Exam Eye Exam: EOMI, Normal appearance, PERRL - ENT Exam ENT Exam: Mucous Membranes Moist - Neck Exam Neck Exam: Full ROM, Normal Inspection - Respiratory Exam Respiratory Exam: Clear to Ausculation Bilateral, NORMAL BREATHING PATTERN. absent: Rales, Rhonchi, Wheezes - Cardiovascular Exam Cardiovascular Exam: +S1, +S2. absent: Bradycardia Additional comments: edema overlying and extending lateral to pacemarker site on left chest. Ecchymosis noted to right upper medial arm adjacent to axilla. - GI/Abdominal Exam GI & Abdominal Exam: Soft, Normal Bowel Sounds. absent: Firm, Guarding - Extremities Exam Extremities Exam: absent: Pedal Edema, Tenderness Additional comments: ecchymosis to left upper medial arm adjacent to axilla - Back Exam Back Exam: NORMAL INSPECTION - Neurological Exam Neurological Exam: Alert, Awake, Oriented x3 - Psychiatric Exam Psychiatric exam: Normal Affect, Normal Mood - Skin Additional comments: 1.0 x 1.5 cm dark brown verrucous-like stuck on papule with varying pigmentation to right lateral forehead clinically resembling seborrheic keratosis. 0.5 x 0.5 cm dark black papule to left mid back Assessment and Plan - Assessment and Plan (Free Text) Assessment: Chest Pain POD #2 s/p pacemaker placement. Interrogated and functioning well CV: Hemodynamically stable. The patient transferred to ICU for cardiac monitoring, currently asymptomatic and not bradycardic. Telemetry showed bradycardia 50's (09/29/16). Monitor at bedside shows HR as low as 30-40's with MT prolongation and dropped beats. Patient found to be in second degree heart block and transferred to ICU. EKG on admission shows 1st degree heart block. IKER Q6H X3 were also negative. D. Dimer: 229, WNL. Cardio EP consult - Dr. Benjamin Cardio consult placed- Dr. Yeboah- help appreciated. (Dr. Benjamin covering) Edema and ecchymosis to surgical site where pacemaker placed. Chest CT ordered. Will follow-up. History of Hypertension Continue home meds: Aspirin 81 mg PO daily Vasotec 2.5 mg po daily Chronic Congestive Heart Failure Cardio consult placed- Dr. Yeboah- help appreciated. (Dr. Benjamin covering) As per chart. 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 Echocardiogram (09/29/16): LV systolic function normal. EF is 70%. Hypertensive heart disease. Diastolic dysfunction. No aortic or mitral regurgitation. Mild tricuspid and pulmonic valvular regurgitation. Mild pulmonary hypertension. Resume home meds: Aspirin 81 mg Po daily Crestor 5 mg PO daily (Atorvastatin no on formulary) Hyperlipidemia Continue home medication Crestor 5 mg PO daily (Atorvastatin not on formulary) BPH Continue home medication Flomax 0.4 mg PO daily Started Proscar 5 mg po daily (Dutasteride noton formulary) Renal Mass Abd CT 07/2016 showed renal mass. Patient to follow-up with Dr. Patiño as an outpatient. Urine output currently within normal limits. Hypothyroidism Resume Home med: Synthroid 100 mcg daily TSH/ T4 WNL. Diarrhea 2 episodes of soft stools f/u stool studies Seborrheic Keratosis Educated patient lesion examined clinically appears benign in nature. Patient has dark black round 0.5 x 0.5 cm nevi to left mid back. Recommend skin biopsy. Patient instructed to follow-up with a flanging machine operator as an outpatient for full- skin exam. Thrombocytopenia Platelets of 97 Platelets 144 on 10/02/16 may be secondary to medication, patient started on Ceftazidime 1 gm IV Q8H on 10/01/16. Heparin was not administered. Monitor Prophylaxis Heart healthy diet GI proph - Protonix PT/OT Code Status Full Code <Joni Woodard - Last Filed: 10/03/16 09:12> Objective - Vital Signs/Intake and Output Vital Signs (last 24 hours): Temp Pulse Resp BP Pulse Ox 98.8 F 74 18 121/50 L 76 L 10/03/16 04:00 10/02/16 15:53 10/02/16 15:53 10/02/16 15:53 10/02/16 15:53 Intake and Output: 10/03/16 10/03/16 06:59 18:59 Intake Total 1554 200 Output Total 1350 Balance 204 200 - Medications Medications: Current Medications Acetaminophen (Tylenol 325mg Tab) 650 mg PO Q6 PRN PRN Reason: Pain, Mild (1-3) Last Admin: 10/01/16 23:24 Dose: 650 mg Aspirin (Ecotrin) 81 mg PO DAILY [facility] Last Admin: 10/02/16 09:25 Dose: 81 mg Enalapril Maleate (Vasotec) 2.5 mg PO DAILY [facility] Last Admin: 10/02/16 09:25 Dose: 2.5 mg Finasteride (Proscar) 5 mg PO DAILY [facility] Sodium Chloride (Sodium Chloride 0.9%) 1,000 mls @ 100 mls/hr IV .Q10H [facility] Last Admin: 10/03/16 01:51 Dose: 100 mls/hr Ceftazidime 1 gm/ Sodium (Chloride) 100 mls @ 200 mls/hr IV Q8H [facility] Last Admin: 10/03/16 05:48 Dose: 200 mls/hr Levothyroxine Sodium (Synthroid) 100 mcg PO DAILY@0630 [facility] Last Admin: 10/03/16 05:47 Dose: 100 mcg Pantoprazole Sodium (Protonix Ec Tab) 40 mg PO DAILY [facility] Last Admin: 10/02/16 09:25 Dose: 40 mg Rosuvastatin Calcium (Crestor) 5 mg PO HS [facility] Last Admin: 10/02/16 22:49 Dose: 5 mg Tamsulosin HCl (Flomax) 0.4 mg PO DAILY [facility] Last Admin: 10/02/16 09:25 Dose: 0.4 mg - Labs Labs: 10/03/16 06:24 10/03/16 06:24 PT 12.0 SECONDS (9.7-12.2) 10/03/16 06:24 INR 1.1 10/03/16 06:24 APTT 32 SECONDS (21-34) 10/03/16 06:24 Attending/Attestation - Attestation I have personally seen and examined this patient.: Yes I have fully participated in the care of the patient.: Yes I have reviewed all pertinent clinical information, including history, physical exam and plan: Yes Notes (Text): 10/03/16 09:11 This patient was seen at 11:45 AM 10/02/16 History, physical, assessment and plan were thoroughly gone over with the Manuscripts Curator ROS addition: history of numbness on the casiano aspect of the Right Hand 5th finger Joni Woodard D.O.
--- NOTE | 2016-10-02 10:47 | CP.PCM.PN ---
Subjective - Date & Time of Evaluation Date of Evaluation: 10/02/16 Time of Evaluation: 10:44 - Subjective Subjective: The patient feels ok, in the chair. Constipated. Objective - Vital Signs/Intake and Output Vital Signs (last 24 hours): Temp Pulse Resp BP Pulse Ox 97.1 F L 88 20 116/57 L 94 L 10/02/16 08:00 10/02/16 08:00 10/02/16 08:00 10/02/16 09:25 10/02/16 08:00 Intake and Output: 10/02/16 10/02/16 06:59 18:59 Intake Total 1872 600 Output Total 1150 280 Balance 722 320 - Medications Medications: Current Medications Acetaminophen (Tylenol 325mg Tab) 650 mg PO Q6 PRN PRN Reason: Pain, Mild (1-3) Last Admin: 10/01/16 23:24 Dose: 650 mg Aspirin (Ecotrin) 81 mg PO DAILY [facility] Last Admin: 10/02/16 09:25 Dose: 81 mg Enalapril Maleate (Vasotec) 2.5 mg PO DAILY [facility] Last Admin: 10/02/16 09:25 Dose: 2.5 mg Sodium Chloride (Sodium Chloride 0.9%) 1,000 mls @ 100 mls/hr IV .Q10H [facility] Last Admin: 10/02/16 02:35 Dose: 100 mls/hr Ceftazidime 1 gm/ Sodium (Chloride) 100 mls @ 200 mls/hr IV Q8H [facility] Last Admin: 10/02/16 06:24 Dose: 200 mls/hr Levothyroxine Sodium (Synthroid) 100 mcg PO DAILY@0630 [facility] Last Admin: 10/02/16 06:25 Dose: 100 mcg Pantoprazole Sodium (Protonix Ec Tab) 40 mg PO DAILY [facility] Last Admin: 10/02/16 09:25 Dose: 40 mg Rosuvastatin Calcium (Crestor) 5 mg PO HS [facility] Last Admin: 10/01/16 23:24 Dose: 5 mg Tamsulosin HCl (Flomax) 0.4 mg PO DAILY [facility] Last Admin: 10/02/16 09:25 Dose: 0.4 mg - Labs Labs: 10/02/16 06:59 10/02/16 06:59 PT 11.8 SECONDS (9.7-12.2) 10/01/16 22:20 INR 1.1 10/01/16 22:20 APTT 33 SECONDS (21-34) 10/01/16 22:20 - Constitutional Appears: Well - Head Exam Head Exam: NORMAL INSPECTION - Eye Exam Eye Exam: EOMI - ENT Exam ENT Exam: Mucous Membranes Moist - Neck Exam Neck Exam: Normal Inspection - Respiratory Exam Respiratory Exam: Clear to Ausculation Bilateral, NORMAL BREATHING PATTERN - Cardiovascular Exam Cardiovascular Exam: REGULAR RHYTHM - GI/Abdominal Exam GI & Abdominal Exam: Normal Bowel Sounds - Exam External exam: NORMAL EXTERNAL EXAM - Extremities Exam Extremities Exam: Normal Inspection - Back Exam Back Exam: NORMAL INSPECTION - Neurological Exam Neurological Exam: Alert, Awake, CN II-XII Intact - Psychiatric Exam Psychiatric exam: Normal Affect Additional comments: Skin: mild soft tissue swelling adjacent to the PPM. No discharge or redness. Assessment and Plan - Assessment and Plan (Free Text) Assessment: 1. S/P PPM , ecg shows, arm lead reversal and artifact, no pacing, nsr. 2. BP was hiogh, then normal after low dose vasotec, 3. Echo normal LV EF, likely moderate 4. monitor soft tissue swelling at ppm site
--- NOTE | 2016-10-02 11:04 | CARD ---
APPROVED REPORT EKG Measurement Heart [id number] <Conclusion> Suspect arm lead reversal, interpretation assumes no reversal Sinus rhythm . artifacts +. please repeat. Abnormal ECG
[2016-10-02 16:35] LABS: HEMATOCRIT 39.2 % (35.0-51.0); MEAN CELL VOLUME 89.3 fL (80.0-94.0); MEAN CORPUSCULAR HEMOGLOBIN 31.1 pg (27.0-31.0); MEAN CORPUSCULAR HGB CONC 34.8 g/dL (33.0-37.0); MEAN PLATELET VOLUME 9.6 fL (7.2-11.7); RED CELL DISTRIBUTION WIDTH 14.1 % (11.5-14.5); WHITE BLOOD COUNT 8.7 K/uL (4.8-10.8)
--- NOTE | 2016-10-02 17:21 | CT ---
PROCEDURE: CT Chest without contrast HISTORY: pacemaker, hematoma COMPARISON: Comparison is made to the previous study dated 09/08/2014 TECHNIQUE: Contiguous axial images were obtained through the chest without intravenous contrast enhancement. Sagittal and coronal reconstructions were performed. Radiation dose (DLP): 786.72 mGy-cm. This CT exam was performed using one or more of the following dose reduction techniques: Automated exposure control, adjustment of the mA and/or kV according to patient size, and/or use of iterative reconstruction technique. FINDINGS: LUNGS: No evidence of acute pathology in the lungs. MEDIASTINUM: Unremarkable thoracic aorta. No aneurysm. The heart is mildly enlarged. Pacemaker wires are seen extending to the right heart. Main pulmonary artery unremarkable. No vascular congestion. No lymphadenopathy. PLEURA: No pleural fluid. No pneumothorax. BONES: No fracture. No destructive lesion. UPPER ABDOMEN: No evidence of acute pathology. OTHER FINDINGS: There is left anterior chest wall hematoma at and anterior to the left pectoralis major muscles measures approximately 13 centimeter in the largest transverse diameter and approximately 3.9 centimeter in thickness. There are small droplet of air seen around the pacemaker and anterior to the hematoma. The anterior chest wall hematoma extending from the level of the shoulder to the level of the left breast. IMPRESSION: Left anterior chest wall hematoma extending from the level of the left shoulder to the left breast measures 13 centimeter in the largest transverse diameter and 3.9 centimeter in the largest thickness. Mild cardiomegaly. No evidence of acute pathology in the lungs.
[2016-10-03] MEDS: Sodium Chloride 0.9% 1,000 ML IV SCH (01:51)
[2016-10-03] MEDS: Levothyroxine 100 MCG TAB PO SCH (05:47)
[2016-10-03 06:40] LABS: BASO % 0.5 % (0.0-2.0); EOS # 0.2 K/uL (0.0-0.7); EOS % 2.7 % (0.0-4.0); HEMATOCRIT 35.2 % (35.0-51.0); LYMPH # 1.1 K/uL (1.0-4.3); LYMPH % 15.5 % (20.0-40.0); MEAN CELL VOLUME 89.6 fL (80.0-94.0); MEAN CORPUSCULAR HEMOGLOBIN 30.5 pg (27.0-31.0); MEAN PLATELET VOLUME 8.7 fL (7.2-11.7); MONO # 0.7 K/uL (0.0-0.8); MONO % 10.4 % (0.0-10.0); NRBC % 0.1 % (0.0-2.0); RED CELL DISTRIBUTION WIDTH 14.3 % (11.5-14.5)
[2016-10-03 06:47] LABS: CHLORIDE 108 mmol/L (98-107); POTASSIUM 3.9 mmol/L (3.6-5.2); SODIUM 140 mmol/L (132-148)
[2016-10-03 06:49] LABS: ALB/GLOB RATIO 1.3 (1.0-2.1); AST/SGOT 22 U/L (17-59); BILIRUBIN,TOTAL 0.6 mg/dL (0.2-1.3); CARBON DIOXIDE 24 mmol/L (22-30); GFR AFRICAN-AMERICAN > 60; TOTAL PROTEIN 5.5 g/dL (6.3-8.3)
[2016-10-03 06:50] LABS: ALKALINE PHOSPHATASE 47 U/L (38-126); ALT/SGPT 29 U/L (21-72); BLOOD UREA NITROGEN 22 mg/dL (9-20); CALCIUM 7.8 mg/dl (8.6-10.4); GLUCOSE,RANDOM 81 mg/dL (75-110); MAGNESIUM 2.1 mg/dL (1.6-2.3)
[2016-10-03 06:58] LABS: INR 1.1
--- NOTE | 2016-10-03 07:37 | CP.PCM.PN ---
Addendum entered and electronically signed by Carol Alberts DO 10/03/16 16: 45: Chest CT: Left anterior chest wall hematoma extending from the level of the left shoulder to the left breast measures 13 centimeter in the largest transverse diameter and 3.9 centimeter in the largest thickness. Will reach out to custom leather products maker, Dr. Yeboah, regarding patient continuing on aspirin with hematoma. Original Note: <Carol Alberts - Last Filed: 10/03/16 13:52> Subjective - Date & Time of Evaluation Date of Evaluation: 10/03/16 Time of Evaluation: 07:36 - Subjective Subjective: Patient seen and examined at bedside. No acute events overnight per nursing. Patient is resting comfortably. He complains of increased numbness/tingling to his right hand. He admits to history of playing golf and states he had to stop playing due to symptoms. Patient also states feeling he is "not right in his head" since admission to hospital. He denies increased forgetfulness, dizziness , change in vision, dysarthia, and numbness of his face. He also denies lightheadedness upon changing positions. Patient denies shortness of breath, abdominal pain, nausea, vomiting, diarrhea, and constipation. He states chest pain secondary to pacemaker placement is more controlled today and notes swelling to have improved. Objective - Vital Signs/Intake and Output Vital Signs (last 24 hours): Temp Pulse Resp BP Pulse Ox 98.8 F 74 18 121/50 L 76 L 10/03/16 04:00 10/02/16 15:53 10/02/16 15:53 10/02/16 15:53 10/02/16 15:53 Intake and Output: 10/03/16 10/03/16 06:59 18:59 Intake Total 1554 Output Total 1350 Balance 204 - Medications Medications: Current Medications Acetaminophen (Tylenol 325mg Tab) 650 mg PO Q6 PRN PRN Reason: Pain, Mild (1-3) Last Admin: 10/01/16 23:24 Dose: 650 mg Aspirin (Ecotrin) 81 mg PO DAILY [facility] Last Admin: 10/02/16 09:25 Dose: 81 mg Enalapril Maleate (Vasotec) 2.5 mg PO DAILY [facility] Last Admin: 10/02/16 09:25 Dose: 2.5 mg Finasteride (Proscar) 5 mg PO DAILY [facility] Sodium Chloride (Sodium Chloride 0.9%) 1,000 mls @ 100 mls/hr IV .Q10H [facility] Last Admin: 10/03/16 01:51 Dose: 100 mls/hr Ceftazidime 1 gm/ Sodium (Chloride) 100 mls @ 200 mls/hr IV Q8H [facility] Last Admin: 10/03/16 05:48 Dose: 200 mls/hr Levothyroxine Sodium (Synthroid) 100 mcg PO DAILY@0630 [facility] Last Admin: 10/03/16 05:47 Dose: 100 mcg Pantoprazole Sodium (Protonix Ec Tab) 40 mg PO DAILY [facility] Last Admin: 10/02/16 09:25 Dose: 40 mg Rosuvastatin Calcium (Crestor) 5 mg PO HS [facility] Last Admin: 10/02/16 22:49 Dose: 5 mg Tamsulosin HCl (Flomax) 0.4 mg PO DAILY [facility] Last Admin: 10/02/16 09:25 Dose: 0.4 mg - Labs Labs: 10/03/16 06:24 10/03/16 06:24 PT 12.0 SECONDS (9.7-12.2) 10/03/16 06:24 INR 1.1 10/03/16 06:24 APTT 32 SECONDS (21-34) 10/03/16 06:24 - Constitutional Appears: Non-toxic, No Acute Distress, Younger Than Stated Age - Head Exam Head Exam: ATRAUMATIC, NORMAL INSPECTION, NORMOCEPHALIC - Eye Exam Eye Exam: EOMI, Normal appearance, PERRL - ENT Exam ENT Exam: Mucous Membranes Moist - Neck Exam Neck Exam: Full ROM, Normal Inspection - Respiratory Exam Respiratory Exam: Clear to Ausculation Bilateral, NORMAL BREATHING PATTERN. absent: Rales, Rhonchi, Wheezes - Cardiovascular Exam Cardiovascular Exam: +S1, +S2. absent: Tachycardia Additional comments: Edema overlying and extending lateral to pacemarker site on left chest. Ecchymosis noted to right upper medial arm adjacent to axilla. Mild tenderness to palpation. - GI/Abdominal Exam GI & Abdominal Exam: Soft, Normal Bowel Sounds. absent: Firm, Guarding, Tenderness - Extremities Exam Extremities Exam: Normal Inspection. absent: Pedal Edema, Tenderness - Back Exam Additional comments: .5 x 0.5 cm dark black papule to left mid back - Neurological Exam Neurological Exam: Alert, Awake, Oriented x3 Neuro motor strength exam: Left Upper Extremity: 5, Right Upper Extremity: 5, Left Lower Extremity: 5, Right Lower Extremity: 5 - Psychiatric Exam Psychiatric exam: Normal Affect, Normal Mood - Skin Additional comments: 1.0 x 1.5 cm dark brown verrucous-like stuck on papule with varying pigmentation to right lateral forehead clinically resembling seborrheic keratosis. 0.5 x 0.5 cm dark black papule to left mid back Assessment and Plan - Assessment and Plan (Free Text) Assessment: Chest Pain POD #3 s/p pacemaker placement. Interrogated and functioning well CV: Hemodynamically stable. Telemetry showed bradycardia 50's (09/29/16). Monitor at bedside shows HR as low as 30-40's with [place] prolongation and dropped beats. Patient found to be in second degree heart block and transferred to ICU. EKG on admission shows 1st degree heart block. IKER Q6H X3 were also negative. D. Dimer: 229, WNL. Cardio EP consult - Dr. Benjamin Cardio consult placed- Dr. Yeboah- help appreciated. (Dr. Benjamin covering) Edema and ecchymosis to surgical site where pacemaker placed. Chest CT ordered. Will follow-up. History of Hypertension Continue home meds: Aspirin 81 mg PO daily Vasotec 2.5 mg po daily Chronic Congestive Heart Failure Cardio consult placed- Dr. Yeboah- help appreciated. (Dr. Benjamin covering) As per chart. 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 Echocardiogram (09/29/16): LV systolic function normal. EF is 70%. Hypertensive heart disease. Diastolic dysfunction. No aortic or mitral regurgitation. Mild tricuspid and pulmonic valvular regurgitation. Mild pulmonary hypertension. Resume home meds: Aspirin 81 mg Po daily Crestor 5 mg PO daily (Atorvastatin no on formulary) Hyperlipidemia Continue home medication Crestor 5 mg PO daily (Atorvastatin not on formulary) BPH Continue home medication Flomax 0.4 mg PO daily Continue Proscar 5 mg po daily (Dutasteride noton formulary) Renal Mass Abd CT 07/2016 showed renal mass. Patient to follow-up with Dr. Patiño as an outpatient. Urine output currently within normal limits. Hypothyroidism Resume Home med: Synthroid 100 mcg daily TSH/ T4 WNL. Diarrhea Resolved 2 episodes of soft stools f/u stool studies Seborrheic Keratosis Educated patient lesion examined clinically appears benign in nature. Patient has dark black round 0.5 x 0.5 cm nevi to mid back. Recommend skin biopsy. Patient instructed to follow-up with a utilization review specialist as an outpatient for full- skin exam. Patient noted he may forget to see utilization review specialist once discharged. Patient agreed to have lesion to his mid back biopsied. Biopsy results will be sent to his primary care physician, Dr. Cummins. Thrombocytopenia Platelets improved to 115 Platelets of 97 (10/03/16) Platelets 144 on 10/02/16 may be secondary to medication, patient started on Ceftazidime 1 gm IV Q8H on 10/01/16. Heparin was not administered. Monitor Prophylaxis Heart healthy diet GI proph - Protonix PT/OT - Per PT, recommend TCU. If TCU not possible, then discharge with walker and home physical therapy. Code Status Full Code <Joni Woodard - Last Filed: 10/04/16 09:32> Objective - Vital Signs/Intake and Output Vital Signs (last 24 hours): Temp Pulse Resp BP Pulse Ox 99 F 68 18 166/68 H 98 10/04/16 07:30 10/04/16 07:30 10/04/16 07:30 10/04/16 07:30 10/04/16 07:30 Intake and Output: 10/04/16 10/04/16 06:59 18:59 Intake Total 420 Balance 420 - Medications Medications: Current Medications Acetaminophen (Tylenol 325mg Tab) 650 mg PO Q6 PRN PRN Reason: Pain, Mild (1-3) Last Admin: 10/01/16 23:24 Dose: 650 mg Aspirin (Ecotrin) 81 mg PO DAILY [facility] Last Admin: 10/03/16 09:39 Dose: 81 mg Enalapril Maleate (Vasotec) 2.5 mg PO DAILY [facility] Last Admin: 10/03/16 09:39 Dose: 2.5 mg Finasteride (Proscar) 5 mg PO DAILY [facility] Last Admin: 10/03/16 09:39 Dose: 5 mg Ceftazidime 1 gm/ Sodium (Chloride) 100 mls @ 200 mls/hr IV Q8H [facility] Last Admin: 10/04/16 05:20 Dose: 200 mls/hr Levothyroxine Sodium (Synthroid) 100 mcg PO DAILY@0630 [facility] Last Admin: 10/04/16 06:26 Dose: 100 mcg Pantoprazole Sodium (Protonix Ec Tab) 40 mg PO DAILY [facility] Last Admin: 10/03/16 09:39 Dose: 40 mg Rosuvastatin Calcium (Crestor) 5 mg PO HS [facility] Last Admin: 10/03/16 22:05 Dose: 5 mg Tamsulosin HCl (Flomax) 0.4 mg PO DAILY [facility] Last Admin: 10/03/16 09:39 Dose: 0.4 mg - Labs Labs: 10/03/16 06:24 10/03/16 06:24 PT 12.0 SECONDS (9.7-12.2) 10/03/16 06:24 INR 1.1 10/03/16 06:24 APTT 32 SECONDS (21-34) 10/03/16 06:24 Attending/Attestation - Attestation I have personally seen and examined this patient.: Yes I have fully participated in the care of the patient.: Yes I have reviewed all pertinent clinical information, including history, physical exam and plan: Yes Notes (Text): 10/04/16 09:31 This patient was seen and examined at 5 PM 10/03/16. History, Physical, and Assessment and Plan were thoroughly gone over with the Evaporative Cooler Installer. Joni Woodard D.O.
[2016-10-03] MEDS: Pantoprazole 40 mg EC Tab PO SCH (09:39)
[2016-10-03] MEDS ORDERED: Lidocaine 1%/Epinephrine 1:100000 30 ml vial IJ ONE ×2 (13:51→16:39)
[2016-10-03] MEDS ORDERED: Lidocaine 2% w Epi 1:100,000 Inj IJ ONE (17:00)
--- NOTE | 2016-10-03 23:43 | PCM.URO ---
Urology Progress Note - General General: No Complaints, Tolerating Diet - Subjective Abdominal Pain: No Flank Pain: No Hematuria: No Chest Pain: Yes (OCC) Fever & Chills: No - Objective Lab Results Last 24 Hours: Laboratory Results - last 24 hr 10/03/16 10/03/16 10/03/16 06:24 06:24 06:24 WBC 7.0 RBC 3.93 L Hgb 12.0 Hct 35.2 MCV 89.6 MCH 30.5 MCHC 34.0 RDW 14.3 Plt Count 115 L MPV 8.7 Neut % (Auto) 70.9 Lymph % (Auto) 15.5 L Tripp % (Auto) 10.4 H Eos % (Auto) 2.7 Baso % (Auto) 0.5 Neut # 5.0 Lymph # 1.1 Tripp # 0.7 Eos # 0.2 Baso # 0.0 PT 12.0 INR 1.1 APTT 32 Sodium 140 Potassium 3.9 Chloride 108 H Carbon Dioxide 24 Anion Gap 12 BUN 22 H Creatinine 1.0 Est GFR ( Amer) > 60 Est GFR (Non-Af Amer) > 60 Random Glucose 81 Calcium 7.8 L Magnesium 2.1 Total Bilirubin 0.6 AST 22 ALT 29 Alkaline Phosphatase 47 Total Protein 5.5 L Albumin 3.1 L Globulin 2.4 Albumin/Globulin Ratio 1.3 Intake & Output: Intake & Output 10/03/16 10/03/16 10/04/16 06:59 18:59 06:59 Intake Total 1554 400 420 Output Total 1350 601 Balance 204 -201 420 Intake: Intake, IV Amount 1200 300 100 Left Antecubital 1200 300 100 Oral 354 100 320 Output: Urine 1350 600 Urine, Voided 1350 600 Stool 1 Other: # Voids Urine, Voided 1 2 # Bowel Movements 0 Vital Signs: Vital Signs - 24 hr 10/03/16 10/03/16 10/03/16 00:00 04:00 08:00 Temperature 98.4 F 98.8 F 98.4 F Pulse Rate 74 Respiratory 18 Rate Blood Pressure 133/59 L O2 Sat by Pulse 97 Oximetry 10/03/16 10/03/16 10/03/16 09:39 15:53 16:00 Temperature 97.7 F Pulse Rate 64 71 Respiratory 18 Rate Blood Pressure 133/58 L 150/68 O2 Sat by Pulse 97 Oximetry - Physical Exam Abdominal Exam: Soft, Non-Tender, Non-Distended Urine Color: Clear, Yellow - Plan Additional Information: IMP: UROLOGICALLY STABLE,. IN ICU. PROGRESSING WELL. - Date & Time of Note Date: 10/02/16 Time: 15:05
[2016-10-04] MEDS: Levothyroxine 100 MCG TAB PO SCH (06:26)
[2016-10-04] MEDS: Pantoprazole 40 mg EC Tab PO SCH (10:03)
[2016-10-04 11:28] LABS: BASO % 0.7 % (0.0-2.0); EOS # 0.1 K/uL (0.0-0.7); HEMATOCRIT 35.7 % (35.0-51.0); LYMPH # 0.8 K/uL (1.0-4.3); LYMPH % 13.1 % (20.0-40.0); MEAN CELL VOLUME 89.1 fL (80.0-94.0); MEAN CORPUSCULAR HEMOGLOBIN 30.5 pg (27.0-31.0); MEAN CORPUSCULAR HGB CONC 34.2 g/dL (33.0-37.0); MEAN PLATELET VOLUME 8.5 fL (7.2-11.7); MONO # 0.5 K/uL (0.0-0.8); MONO % 8.8 % (0.0-10.0); RED CELL DISTRIBUTION WIDTH 14.2 % (11.5-14.5); WHITE BLOOD COUNT 5.8 K/uL (4.8-10.8)
[2016-10-04 11:47] LABS: CHLORIDE 103 mmol/L (98-107); POTASSIUM 3.7 mmol/L (3.6-5.2); SODIUM 139 mmol/L (132-148)
[2016-10-04 11:49] LABS: BILIRUBIN,TOTAL 0.6 mg/dL (0.2-1.3); CARBON DIOXIDE 26 mmol/L (22-30); GFR AFRICAN-AMERICAN > 60
[2016-10-04 11:50] LABS: ALB/GLOB RATIO 1.4 (1.0-2.1); ALKALINE PHOSPHATASE 50 U/L (38-126); ALT/SGPT 22 U/L (21-72); AST/SGOT 19 U/L (17-59); BLOOD UREA NITROGEN 24 mg/dL (9-20); CALCIUM 7.9 mg/dl (8.6-10.4); GLUCOSE,RANDOM 107 mg/dL (75-110); TOTAL PROTEIN 5.8 g/dL (6.3-8.3)
--- NOTE | 2016-10-04 20:12 | CP.PCM.PN ---
<Carol Alberts - Last Filed: 10/04/16 20:07> Subjective - Date & Time of Evaluation Date of Evaluation: 10/04/16 Time of Evaluation: 20:07 - Subjective Subjective: Patient seen and examined at bedside. Patient continues to have severe tenderness to left chest corresponding to area of hematoma. He denies chest pain , shortness of breath, palpitations, nausea, vomiting, abdominal pain, constipation, and diarrhea. Patient had an episode of dizziness when changing positions from lying to standing. Pressure dressing applied to hematoma per Cardiology's recommendation. Objective - Vital Signs/Intake and Output Vital Signs (last 24 hours): Temp Pulse Resp BP Pulse Ox 98.2 F 63 20 151/68 H 96 10/04/16 15:00 10/04/16 16:00 10/04/16 15:00 10/04/16 15:00 10/04/16 15:00 - Medications Medications: Current Medications Acetaminophen (Tylenol 325mg Tab) 650 mg PO Q6 PRN PRN Reason: Pain, Mild (1-3) Last Admin: 10/01/16 23:24 Dose: 650 mg Aspirin (Ecotrin) 81 mg PO DAILY [facility] Last Admin: 10/04/16 10:03 Dose: 81 mg Enalapril Maleate (Vasotec) 5 mg PO DAILY [facility] Last Admin: 10/04/16 10:04 Dose: 5 mg Finasteride (Proscar) 5 mg PO DAILY [facility] Last Admin: 10/04/16 10:03 Dose: 5 mg Levothyroxine Sodium (Synthroid) 100 mcg PO DAILY@0630 [facility] Last Admin: 10/04/16 06:26 Dose: 100 mcg Pantoprazole Sodium (Protonix Ec Tab) 40 mg PO DAILY [facility] Last Admin: 10/04/16 10:03 Dose: 40 mg Rosuvastatin Calcium (Crestor) 5 mg PO HS [facility] Last Admin: 10/03/16 22:05 Dose: 5 mg Tamsulosin HCl (Flomax) 0.4 mg PO DAILY [facility] Last Admin: 10/04/16 10:03 Dose: 0.4 mg - Labs Labs: 10/04/16 11:13 10/04/16 11:13 PT 12.0 SECONDS (9.7-12.2) 10/03/16 06:24 INR 1.1 10/03/16 06:24 APTT 32 SECONDS (21-34) 10/03/16 06:24 - Constitutional Appears: Non-toxic, No Acute Distress - Head Exam Head Exam: ATRAUMATIC, NORMAL INSPECTION, NORMOCEPHALIC - Eye Exam Eye Exam: EOMI, Normal appearance, PERRL - ENT Exam ENT Exam: Mucous Membranes Moist - Respiratory Exam Respiratory Exam: Clear to Ausculation Bilateral, NORMAL BREATHING PATTERN. absent: Rales, Rhonchi, Wheezes Additional comments: edema to left chest. Ecchymosis affecting left chest wall lateral to incision and affecting inferior chest and medial left arm. - Cardiovascular Exam Cardiovascular Exam: +S1, +S2. absent: Bradycardia, Tachycardia - GI/Abdominal Exam GI & Abdominal Exam: Soft, Normal Bowel Sounds. absent: Guarding, Rigid, Tenderness - Extremities Exam Extremities Exam: Normal Inspection. absent: Pedal Edema, Tenderness - Neurological Exam Neurological Exam: Alert, Awake, Oriented x3 - Psychiatric Exam Psychiatric exam: Normal Affect, Normal Mood - Skin Additional comments: ecchymosis to left chest wall and left medial upper extremity. Assessment and Plan - Assessment and Plan (Free Text) Assessment: Chest Pain POD #4 s/p pacemaker placement. Interrogated and functioning well CV: Hemodynamically stable. Telemetry showed bradycardia 50's (09/29/16). Monitor at bedside shows HR as low as 30-40's with OH prolongation and dropped beats. Patient found to be in second degree heart block and transferred to ICU. EKG on admission shows 1st degree heart block. IKER Q6H X3 were also negative. D. Dimer: 229, WNL. Cardio EP consult - Dr. Benjamin Cardio consult placed- Dr. Yeboah- help appreciated. (Dr. Benjamin covering) Edema and ecchymosis to surgical site where pacemaker placed. Chest CT ordered showing left anterior chest wall hematoma extending from the level of the left shoulder to the left breast measures 13 centimeter in the largest transverse diameter and 3.9 centimeter in the largest thickness. Will hold ASA per cardiology. Pressure dressing applied to affected area. History of Hypertension Continue home meds: Aspirin 81 mg PO daily - on hold Vasotec 2.5 mg po daily Chronic Congestive Heart Failure Cardio consult placed- Dr. Yeboah- help appreciated. (Dr. Benjamin covering) As per chart. 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 Echocardiogram (09/29/16): LV systolic function normal. EF is 70%. Hypertensive heart disease. Diastolic dysfunction. No aortic or mitral regurgitation. Mild tricuspid and pulmonic valvular regurgitation. Mild pulmonary hypertension. Resume home meds: Aspirin 81 mg Po daily - hold Crestor 5 mg PO daily (Atorvastatin no on formulary) Hyperlipidemia Continue home medication Crestor 5 mg PO daily (Atorvastatin not on formulary) BPH Continue home medication Flomax 0.4 mg PO daily Continue Proscar 5 mg po daily (Dutasteride noton formulary) Renal Mass Abd CT 07/2016 showed renal mass. Patient to follow-up with Dr. Patiño as an outpatient. Urine output currently within normal limits. Hypothyroidism Resume Home med: Synthroid 100 mcg daily TSH/ T4 WNL. Diarrhea Resolved 2 episodes of soft stools Seborrheic Keratosis Educated patient lesion examined clinically appears benign in nature. Patient has dark black round 0.5 x 0.5 cm nevi to mid back. Recommend skin biopsy. Patient instructed to follow-up with a clinical specialty rep as an outpatient for full- skin exam. Patient noted he may forget to see clinical specialty rep once discharged. Patient agreed to have lesion to his right mid back biopsied. Biopsy results will be sent to his primary care physician, Dr. Cummins. Thrombocytopenia Platelets improved to 115 Platelets of 97 (10/03/16) Platelets 144 on 10/02/16 may be secondary to medication, patient started on Ceftazidime 1 gm IV Q8H on 10/01/16. Heparin was not administered. Monitor Prophylaxis Heart healthy diet GI proph - Protonix PT/OT - Per PT, recommend TCU. If TCU not possible, then discharge with walker and home physical therapy. Code Status Full Code Dispo Patient to be discharged home tomorrow. Patient to be provided script for outpatient physical therapy and walker Patient to follow-up with cardiologis on Friday ([phone]). Director Gift available from 9:30AM - 1:00PM. Please instruct to come as walk-in. Patient to follow-up with Urologist, Dr. Patiño, as an outpatient. Patient to follow-up with primary care physician, Dr. Cummins. <Bryn Love - Last Filed: 10/05/16 08:01> Objective - Vital Signs/Intake and Output Vital Signs (last 24 hours): Temp Pulse Resp BP Pulse Ox 98.1 F 60 20 156/74 H 96 10/05/16 05:25 10/05/16 05:25 10/05/16 05:25 10/05/16 05:25 10/05/16 07:21 Intake and Output: 10/05/16 10/05/16 06:59 18:59 Intake Total 560 Balance 560 - Medications Medications: Current Medications Acetaminophen (Tylenol 325mg Tab) 650 mg PO Q6 PRN PRN Reason: Pain, Mild (1-3) Last Admin: 10/01/16 23:24 Dose: 650 mg Enalapril Maleate (Vasotec) 5 mg PO DAILY [facility] Last Admin: 10/04/16 10:04 Dose: 5 mg Finasteride (Proscar) 5 mg PO DAILY [facility] Last Admin: 10/04/16 10:03 Dose: 5 mg Levothyroxine Sodium (Synthroid) 100 mcg PO DAILY@0630 [facility] Last Admin: 10/05/16 06:08 Dose: 100 mcg Pantoprazole Sodium (Protonix Ec Tab) 40 mg PO DAILY [facility] Last Admin: 10/04/16 10:03 Dose: 40 mg Rosuvastatin Calcium (Crestor) 5 mg PO HS [facility] Last Admin: 10/04/16 21:44 Dose: 5 mg Tamsulosin HCl (Flomax) 0.4 mg PO DAILY [facility] Last Admin: 10/04/16 10:03 Dose: 0.4 mg - Labs Labs: 10/05/16 06:19 10/05/16 06:19 PT 12.0 SECONDS (9.7-12.2) 10/03/16 06:24 INR 1.1 10/03/16 06:24 APTT 32 SECONDS (21-34) 10/03/16 06:24 Attending/Attestation - Attestation I have personally seen and examined this patient.: Yes I have fully participated in the care of the patient.: Yes I have reviewed all pertinent clinical information, including history, physical exam and plan: Yes Notes (Text): Medical attending: Patient was seen and examined by me, agrees the above note by medical engineer. The patient was feeling well, he denied shortness of breath , however he has some tenderness over the area where the pacemaker was placed. As well as some ecchymosis and bruising noted over that area as well. He has a hematoma in that area that were currently monitoring. On telemetry his heart rate ranges in the mid 60s to 70 range Both his hemoglobin and white blood cell count within normal range for the past several days. He's also been afebrile as well. He is also tolerating his diet as well as going to the bathroom. At this time were continue to monitor the patient Thank you very much, Bryn Love
[2016-10-05 05:29] VITALS: TEMP 98.1
[2016-10-05] MEDS: Levothyroxine 100 MCG TAB PO SCH (06:08)
[2016-10-05 06:28] LABS: BASO % 0.8 % (0.0-2.0); EOS # 0.3 K/uL (0.0-0.7); EOS % 4.6 % (0.0-4.0); HEMATOCRIT 35.6 % (35.0-51.0); LYMPH # 1.1 K/uL (1.0-4.3); LYMPH % 18.8 % (20.0-40.0); MEAN CELL VOLUME 88.8 fL (80.0-94.0); MEAN CORPUSCULAR HEMOGLOBIN 29.9 pg (27.0-31.0); MEAN CORPUSCULAR HGB CONC 33.6 g/dL (33.0-37.0); MEAN PLATELET VOLUME 8.5 fL (7.2-11.7); MONO # 0.6 K/uL (0.0-0.8); MONO % 9.5 % (0.0-10.0); RED CELL DISTRIBUTION WIDTH 14.2 % (11.5-14.5); WHITE BLOOD COUNT 5.9 K/uL (4.8-10.8)
[2016-10-05 06:40] LABS: CHLORIDE 103 mmol/L (98-107)
[2016-10-05 06:41] LABS: POTASSIUM 3.6 mmol/L (3.6-5.2); SODIUM 141 mmol/L (132-148)
[2016-10-05 06:43] LABS: ALB/GLOB RATIO 1.4 (1.0-2.1); ALKALINE PHOSPHATASE 55 U/L (38-126); AST/SGOT 18 U/L (17-59); BILIRUBIN,TOTAL 0.8 mg/dL (0.2-1.3); BLOOD UREA NITROGEN 24 mg/dL (9-20); CARBON DIOXIDE 26 mmol/L (22-30); GFR AFRICAN-AMERICAN > 60; TOTAL PROTEIN 5.8 g/dL (6.3-8.3)
[2016-10-05 06:44] LABS: ALT/SGPT 26 U/L (21-72); GLUCOSE,RANDOM 80 mg/dL (75-110); MAGNESIUM 2.1 mg/dL (1.6-2.3)
[2016-10-05 07:21] VITALS: O2SAT 96
[2016-10-05 08:40] VITALS: PULSE 64; RESP 18
--- NOTE | 2016-10-05 08:56 | CP.PCM.PN ---
Subjective - Date & Time of Evaluation Date of Evaluation: 10/05/16 Time of Evaluation: 08:53 - Subjective Subjective: No SOB or CP Has small hematoma with ecchymosis over PPM site No signs of infection Objective - Vital Signs/Intake and Output Vital Signs (last 24 hours): Temp Pulse Resp BP Pulse Ox 98.1 F 64 18 179/73 H 96 10/05/16 07:20 10/05/16 07:20 10/05/16 07:20 10/05/16 07:20 10/05/16 07:21 Intake and Output: 10/05/16 10/05/16 06:59 18:59 Intake Total 560 Balance 560 - Medications Medications: Current Medications Acetaminophen (Tylenol 325mg Tab) 650 mg PO Q6 PRN PRN Reason: Pain, Mild (1-3) Last Admin: 10/01/16 23:24 Dose: 650 mg Enalapril Maleate (Vasotec) 5 mg PO DAILY [facility] Last Admin: 10/04/16 10:04 Dose: 5 mg Finasteride (Proscar) 5 mg PO DAILY [facility] Last Admin: 10/04/16 10:03 Dose: 5 mg Levothyroxine Sodium (Synthroid) 100 mcg PO DAILY@0630 [facility] Last Admin: 10/05/16 06:08 Dose: 100 mcg Pantoprazole Sodium (Protonix Ec Tab) 40 mg PO DAILY [facility] Last Admin: 10/04/16 10:03 Dose: 40 mg Rosuvastatin Calcium (Crestor) 5 mg PO HS [facility] Last Admin: 10/04/16 21:44 Dose: 5 mg Tamsulosin HCl (Flomax) 0.4 mg PO DAILY [facility] Last Admin: 10/04/16 10:03 Dose: 0.4 mg - Labs Labs: 10/05/16 06:19 10/05/16 06:19 PT 12.0 SECONDS (9.7-12.2) 10/03/16 06:24 INR 1.1 10/03/16 06:24 APTT 32 SECONDS (21-34) 10/03/16 06:24 - Respiratory Exam Respiratory Exam: Clear to Ausculation Bilateral - Cardiovascular Exam Cardiovascular Exam: +S1, +S2 Additional comments: Small hematoma over PPM site with ecchymosis, no warmth, no discharge, mild tenderness Assessment and Plan - Assessment and Plan (Free Text) Assessment: 1. Sick sinus syndrome 2. 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 Small hematoma over PPM site 4. Preserved LVEF Plan: 1. Continue to hold aspirin for now 2. No further cardiac workup required for PPM site hematoma, which is small and requires conservative monitoring May be discharged home from an EP standpoint Follow up with me in office on 10/14/16 for a PPM wound check
[2016-10-05] MEDS: Pantoprazole 40 mg EC Tab PO SCH (09:02)
[2016-10-05 09:05] VITALS: BP 165/79
--- NOTE | 2016-10-05 23:53 | CP.PCM.DIS ---
<Carol Alberts - Last Filed: 10/06/16 13:01> Provider - Provider Date of Admission: 09/29/16 12:32 Attending physician: Robert Miller MD Primary care physician: Dr. Cummins Consults: Critical Care: Dr. Beth Food Service Agent: Dr. Yeboah Food Service Agent, EP: Dr. Benjamin, Dr. Glover Urologist: Dr. Janie Patiño Time Spent in preparation of Discharge (in minutes): 41 Diagnosis - Discharge Diagnosis (1) Second degree heart block Status: Acute (2) S/P cardiac pacemaker procedure Status: Acute (3) Hypertension Status: Chronic (4) Diastolic dysfunction Status: Chronic (5) Hyperlipidemia Status: Chronic (6) Renal mass Status: Acute (7) Skin lesion Status: Acute Comment: shave biopsy performed (8) BPH (benign prostatic hyperplasia) Status: Chronic (9) Hypothyroidism Status: Chronic Hospital Course - Lab Results Lab Results: Micro Results 10/03/16 Unknown Naris MRSA Culture - Final MRSA NOT DETECTED Most Recent Lab Values WBC 5.9 K/uL (4.8-10.8) 10/05/16 06:19 RBC 4.01 Mil/uL (4.40-5.90) L 10/05/16 06:19 Hgb 12.0 g/dL (12.0-18.0) 10/05/16 06:19 Hct 35.6 % (35.0-51.0) 10/05/16 06:19 MCV 88.8 fL (80.0-94.0) 10/05/16 06:19 MCH 29.9 pg (27.0-31.0) 10/05/16 06:19 MCHC 33.6 g/dL (33.0-37.0) 10/05/16 06:19 RDW 14.2 % (11.5-14.5) 10/05/16 06:19 Plt Count 129 K/uL (130-400) L 10/05/16 06:19 MPV 8.5 fL (7.2-11.7) 10/05/16 06:19 Neut % (Auto) 66.3 % (50.0-75.0) 10/05/16 06:19 Lymph % (Auto) 18.8 % (20.0-40.0) L 10/05/16 06:19 [place] % (Auto) 9.5 % (0.0-10.0) 10/05/16 06:19 Eos % (Auto) 4.6 % (0.0-4.0) H 10/05/16 06:19 Baso % (Auto) 0.8 % (0.0-2.0) 10/05/16 06:19 Neut # 3.9 K/uL (1.8-7.0) 10/05/16 06:19 Lymph # 1.1 K/uL (1.0-4.3) 10/05/16 06:19 [place] # 0.6 K/uL (0.0-0.8) 10/05/16 06:19 Eos # 0.3 K/uL (0.0-0.7) 10/05/16 06:19 Baso # 0.0 K/uL (0.0-0.2) 10/05/16 06:19 PT 12.0 SECONDS (9.7-12.2) 10/03/16 06:24 INR 1.1 10/03/16 06:24 APTT 32 SECONDS (21-34) 10/03/16 06:24 D-Dimer, Quantitative 229 ng/mlDDU (0-243) 09/28/16 10:48 Sodium 141 mmol/L (132-148) 10/05/16 06:19 Potassium 3.6 mmol/L (3.6-5.2) 10/05/16 06:19 Chloride 103 mmol/L (98-107) 10/05/16 06:19 Carbon Dioxide 26 mmol/L (22-30) 10/05/16 06:19 Anion Gap 16 (10-20) 10/05/16 06:19 BUN 24 mg/dL (9-20) H 10/05/16 06:19 Creatinine 0.9 MG/DL (0.8-1.5) 10/05/16 06:19 Est GFR ( Amer) > 60 10/05/16 06:19 Est GFR (Non-Af Amer) > 60 10/05/16 06:19 POC Glucose (mg/dL) 102 mg/dL (65-110) 09/29/16 10:39 Random Glucose 80 mg/dL (75-110) 10/05/16 06:19 Hemoglobin A1c 5.0 % (4.2-6.5) 09/29/16 06:06 Calcium 8.0 mg/dl (8.6-10.4) L 10/05/16 06:19 Phosphorus 3.3 mg/dL (2.5-4.5) 10/02/16 06:59 Magnesium 2.1 mg/dL (1.6-2.3) 10/05/16 06:19 Total Bilirubin 0.8 mg/dL (0.2-1.3) 10/05/16 06:19 AST 18 U/L (17-59) 10/05/16 06:19 ALT 26 U/L (21-72) 10/05/16 06:19 Alkaline Phosphatase 55 U/L (38-126) 10/05/16 06:19 Total Creatine Kinase 63 U/L (55-170) 09/29/16 11:01 CK-MB (Mass) 2.07 ng/mL (0.0-3.38) 09/29/16 11:01 Troponin I 0.0190 ng/mL (0.00-0.120) 09/28/16 10:48 Troponin I, Quant 0.0240 ng/mL (0.00-0.120) 09/29/16 11:01 Total Protein 5.8 g/dL (6.3-8.3) L 10/05/16 06:19 Albumin 3.4 g/dL (3.5-5.0) L 10/05/16 06:19 Globulin 2.4 gm/dL (2.2-3.9) 10/05/16 06:19 Albumin/Globulin Ratio 1.4 (1.0-2.1) 10/05/16 06:19 Triglycerides 97 mg/dL (0-149) D 09/29/16 06:06 Cholesterol 131 mg/dL (0-199) 09/29/16 06:06 LDL Cholesterol Direct 72 mg/dL (0-129) 09/29/16 06:06 HDL Cholesterol 34 mg/dL (30-70) 09/29/16 06:06 Procalcitonin 0.05 NG/ML (0.19-0.49) L 10/01/16 22:20 Free T4 1.04 ng/dL (0.78-2.19) 09/29/16 06:06 TSH 3rd Generation 0.77 mIU/L (0.46-4.68) 09/29/16 06:06 - Hospital Course Hospital Course: On initial presentation: CC" chest pain" 89 year old male with PMHx of HTN, high cholesterol, hypothyroid, "heart problems", BPH presented to the emergency via ambulance complaining of intermittent chest pain. Patient reports chest pain began this AM when he was walking to the store. He states he felt associated dizziness with the chest pain. Pain was sharp, would come and go and resolve spontaneously. Eventually he made it home and sat down to see if pain would resolve, but pain did not resolve with rest. Denies diaphoresis, palpitations, shortness of breath, leg swelling, radiation into limbs, nausea, vomiting, cough, fevers, chills, skin pain or rash. Patient states this has never happened before. He follows with parent coach Dr. Yeboah for "heart problem" that happened years ago. Patient was told he "might be having a heart attack" in the ambulance which concerned him. PMHx:HTN, high cholesterol, hypothyroid, CHF, BPH, recently diagnosed renal mass. Allergies: Demerol ("almost ") Medications: Aspirin 81 mg Po daily, Amlodipine/Benazepril 5/10 PO daily, Lipitor 10 mg PO daily, Dutasteride 0.5 mg PO daily, Levothyroxine, 100 mcg PO daily, Flomax 0.4 mg PO daily. Family hx: denies Surgery Hx: tonsillectomy, appendectomy, lipoma excision. Social: quit tobacco 45 years ago, drinks wine with dinner from time to time. Denies drug use. PMD: Dr. Cummins. During hospital course: EKG on admission showed first degree heart block and patient was placed on telemetry. IKER panel and serial EKGs were negative for myocardial infarction. On hospital day 2, a rapid response was called as patient suddenly felt dizzy when getting out of bed and felt he could syncopize. Stat EKG showed second degree AV block, rate of 56 bpm. Vitals were otherwise stable. Telemetry which was reviewed overnight showed sinus bradycardia, rate of 50-56 bpm with 2 second pause. Bedside monitor car operator indicated a heart rate of 30-40 bpm. Food Service Agent, Dr. Yeboah, was informed and patient was transferred to ICU. Dr. Benjamin/Dr. Glover placed dual chamber pacemaker ([employer]) on 09/30/16 for sick sinus syndrome. There were no complications during the procedure. Left ventricular ejection fraction was noted to be preserved per evaluation with echocardiogram. Other events throughout hospitalization as described below: Chest Pain s/p pacemaker placement. Interrogated and functioning well Patient found to be Hemodynamically stable. Edema and ecchymosis were noted to surgical site where pacemaker placed. Chest CT ordered showed left anterior chest wall hematoma extending from the level of the left shoulder to the left breast measures 13 centimeter in the largest transverse diameter and 3.9 centimeter in the largest thickness. Aspirin held per cardiology. Pressure dressing applied to affected area x 1 day. Site evaluated by Dr. Glover and noted to be small and only requiring conservative monitoring. Patient was instructed to follow-up in Dr. Glover's office on 10/14/16 for pacemaker wound check. EKG on admission shows 1st degree heart block. IKER Q6H X3 were also negative. D. Dimer: 229, WNL. Cardio EP consult - Dr. Benjamin/Dr. lGover Cardio consult placed- Dr. Yeboah- help appreciated. (Dr. Benjamin covering) History of Hypertension Continue home meds: Initially continued on Aspirin 81 mg PO daily but then held due to hematoma s/p PPM Vasotec 2.5 mg po daily Chronic Congestive Heart Failure As per chart. 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 Echocardiogram (09/29/16): LV systolic function normal. EF is 70%. Hypertensive heart disease. Diastolic dysfunction. No aortic or mitral regurgitation. Mild tricuspid and pulmonic valvular regurgitation. Mild pulmonary hypertension. Resume home med: Crestor 5 mg PO daily (Atorvastatin no on formulary) Hyperlipidemia Continued on Crestor 5 mg PO daily (Atorvastatin not on formulary) Renal Mass Abdominal CT 07/2016 showed renal mass. Patient to follow-up with Dr. Patiño as an outpatient. Urine output was found to be within normal limits. BPH Continued on home medication Flomax 0.4 mg PO daily Continued on Proscar 5 mg po daily (Dutasteride not on formulary) Seborrheic Keratosis Educated patient brown warty papule examined on right forehead clinically appears benign in nature. Nevus to Right Upper Mid Back Patient noted to have dark brown-black symmetric papule measuring 0.5 x 0.5 cm to right upper mid back. Lesion appears darker than other nevi present on patient's skin. Recommended to patient he should follow-up with a pouncing lathe operator as an outpatient for full-skin exam and to have lesion biopsied. Patient noted he may forget to see pouncing lathe operator once discharged and agreed to have shave biopsy performed during hospitalization. Biopsy results will be sent to his primary care physician, Dr. Cummins. Hypothyroidism Continued on home medication Synthroid 100 mcg po daily TSH/ T4 WNL. Diarrhea Resolved 2 episodes of soft stools Thrombocytopenia Platelets improved to 115. Likely lab error. Platelets of 97 (10/03/16) Platelets 144 on 10/02/16 Possibly secondary to medication, patient started on Ceftazidime 1 gm IV Q8H on 10/01/16. Heparin was not administered. Prophylaxis Heart healthy diet GI proph - Protonix PT/OT - Per PT, recommended TCU. If TCU not possible, then discharge with walker and home physical therapy. Code Status Full Code Dispo Patient to be discharged home tomorrow with prescription for walker and outpatient physical therapy. Patient to follow-up with parent coach, Dr. Mendoza, on 10/14/16 ([phone]) for pacemaker site wound check. Patient to follow-up with Urologist, Dr. Patiño, as an outpatient. Patient to follow-up with primary care physician, Dr. Cummins. Skin biopsy results to be sent to Dr. Cummins. Please note this is a summary of hospital course. For full details, please see patient chart: Discharge Instructions: Patient to be discharged home per Dr. Love and Dr. Glover. Patient should resume all home medications except for Aspirin. Patient given scripts for outpatient physical therapy and a walker. Patient should make an appointment and follow up with Dr. Glover, parent coach at [facility], on October 14, 2016. Patient should also make an appointment and follow up with PMD, Dr. Cummins, within one week and with urologist, Dr. Patiño, within one week. Patient should return to ED immediately if symptoms return or worsen. - Date & Time of H&P Date of H&P: 09/28/16 Time of H&P: 15:51 Discharge Exam - Head Exam Head Exam: ATRAUMATIC, NORMAL INSPECTION, NORMOCEPHALIC - Eye Exam Eye Exam: EOMI, Normal appearance Pupil Exam: PERRL - ENT Exam ENT Exam: Mucous Membranes Moist - Neck Exam Neck exam: Full Rom, Normal Inspection - Respiratory Exam Respiratory Exam: Clear to PA & Lateral, NORMAL BREATHING PATTERN, UNREMARKABLE. absent: Rales, Rhonchi, Wheezes Additional comments: mild edema and ecchymosis to right chest and right medial upper extremity adjacent to axilla - Cardiovascular Exam Cardiovascular Exam: +S1, +S2. absent: Bradycardia, Tachycardia - GI/Abdominal Exam GI & Abdominal Exam: Normal Bowel Sounds, Unremarkable. absent: Distended, Firm - Extremities Exam Extremities exam: full ROM - Neurological Exam Neurological exam: Alert, CN II-XII Intact, Oriented x3 - Psychiatric Exam Psychiatric exam: Normal Affect, Normal Mood Discharge Plan - Follow Up Plan Condition: STABLE Disposition: HOME/ ROUTINE Instructions: Heart Failure (DC), Chest Pain (DC), Pacemaker (DC), Heart Healthy Diet (DC) Additional Instructions: Patient to be discharged home per Dr. Love and Dr. Glover. Patient should resume all home medications. Patient given scripts for outpatient physical therapy and a walker. Patient should make an appointment and follow up with Dr. Glover, parent coach at [facility], on October 14, 2016. Patient should also make an appointment and follow up with PMD, Dr. Cummins, within one week and with urologist, Dr. Patiño, within one week. Patient should return to ED immediately if symptoms return or worsen. Referrals: Barber Glover MD [Staff Provider] - Zan Yeboah MD [Staff Provider] - Janie Patiño MD [Staff Provider] - Lei Cummins DO [Doctor Osteopathy] - <Bryn Love - Last Filed: 10/06/16 16:03> Provider - Provider Date of Admission: 09/29/16 12:32 Attending physician: Robert Miller MD Hospital Course - Lab Results Lab Results: Micro Results 10/03/16 Unknown Naris MRSA Culture - Final MRSA NOT DETECTED Most Recent Lab Values WBC 5.9 K/uL (4.8-10.8) 10/05/16 06:19 RBC 4.01 Mil/uL (4.40-5.90) L 10/05/16 06:19 Hgb 12.0 g/dL (12.0-18.0) 10/05/16 06:19 Hct 35.6 % (35.0-51.0) 10/05/16 06:19 MCV 88.8 fL (80.0-94.0) 10/05/16 06:19 MCH 29.9 pg (27.0-31.0) 10/05/16 06:19 MCHC 33.6 g/dL (33.0-37.0) 10/05/16 06:19 RDW 14.2 % (11.5-14.5) 10/05/16 06:19 Plt Count 129 K/uL (130-400) L 10/05/16 06:19 MPV 8.5 fL (7.2-11.7) 10/05/16 06:19 Neut % (Auto) 66.3 % (50.0-75.0) 10/05/16 06:19 Lymph % (Auto) 18.8 % (20.0-40.0) L 10/05/16 06:19 [place] % (Auto) 9.5 % (0.0-10.0) 10/05/16 06:19 Eos % (Auto) 4.6 % (0.0-4.0) H 10/05/16 06:19 Baso % (Auto) 0.8 % (0.0-2.0) 10/05/16 06:19 Neut # 3.9 K/uL (1.8-7.0) 10/05/16 06:19 Lymph # 1.1 K/uL (1.0-4.3) 10/05/16 06:19 [place] # 0.6 K/uL (0.0-0.8) 10/05/16 06:19 Eos # 0.3 K/uL (0.0-0.7) 10/05/16 06:19 Baso # 0.0 K/uL (0.0-0.2) 10/05/16 06:19 PT 12.0 SECONDS (9.7-12.2) 10/03/16 06:24 INR 1.1 10/03/16 06:24 APTT 32 SECONDS (21-34) 10/03/16 06:24 D-Dimer, Quantitative 229 ng/mlDDU (0-243) 09/28/16 10:48 Sodium 141 mmol/L (132-148) 10/05/16 06:19 Potassium 3.6 mmol/L (3.6-5.2) 10/05/16 06:19 Chloride 103 mmol/L (98-107) 10/05/16 06:19 Carbon Dioxide 26 mmol/L (22-30) 10/05/16 06:19 Anion Gap 16 (10-20) 10/05/16 06:19 BUN 24 mg/dL (9-20) H 10/05/16 06:19 Creatinine 0.9 MG/DL (0.8-1.5) 10/05/16 06:19 Est GFR ( Amer) > 60 10/05/16 06:19 Est GFR (Non-Af Amer) > 60 10/05/16 06:19 POC Glucose (mg/dL) 102 mg/dL (65-110) 09/29/16 10:39 Random Glucose 80 mg/dL (75-110) 10/05/16 06:19 Hemoglobin A1c 5.0 % (4.2-6.5) 09/29/16 06:06 Calcium 8.0 mg/dl (8.6-10.4) L 10/05/16 06:19 Phosphorus 3.3 mg/dL (2.5-4.5) 10/02/16 06:59 Magnesium 2.1 mg/dL (1.6-2.3) 10/05/16 06:19 Total Bilirubin 0.8 mg/dL (0.2-1.3) 10/05/16 06:19 AST 18 U/L (17-59) 10/05/16 06:19 ALT 26 U/L (21-72) 10/05/16 06:19 Alkaline Phosphatase 55 U/L (38-126) 10/05/16 06:19 Total Creatine Kinase 63 U/L (55-170) 09/29/16 11:01 CK-MB (Mass) 2.07 ng/mL (0.0-3.38) 09/29/16 11:01 Troponin I 0.0190 ng/mL (0.00-0.120) 09/28/16 10:48 Troponin I, Quant 0.0240 ng/mL (0.00-0.120) 09/29/16 11:01 Total Protein 5.8 g/dL (6.3-8.3) L 10/05/16 06:19 Albumin 3.4 g/dL (3.5-5.0) L 10/05/16 06:19 Globulin 2.4 gm/dL (2.2-3.9) 10/05/16 06:19 Albumin/Globulin Ratio 1.4 (1.0-2.1) 10/05/16 06:19 Triglycerides 97 mg/dL (0-149) D 09/29/16 06:06 Cholesterol 131 mg/dL (0-199) 09/29/16 06:06 LDL Cholesterol Direct 72 mg/dL (0-129) 09/29/16 06:06 HDL Cholesterol 34 mg/dL (30-70) 09/29/16 06:06 Procalcitonin 0.05 NG/ML (0.19-0.49) L 10/01/16 22:20 Free T4 1.04 ng/dL (0.78-2.19) 09/29/16 06:06 TSH 3rd Generation 0.77 mIU/L (0.46-4.68) 09/29/16 06:06 Attending/Attestation - Attestation I have personally seen and examined this patient.: Yes I have fully participated in the care of the patient.: Yes I have reviewed all pertinent clinical information, including history, physical exam and plan: Yes Notes (Text): Medical Attending: Patient was seen and examined by me. Agree with the above note by the resident. Patient reported feeling well, he did not have chest pain and was not short of breath. He also denied fever and chills. He was tolerating diet and bathroom ok as well. Patient felt ready to go. The area of the hematoma over the dual chamber PPM had decreased in size. The area of incision was clean and dry. Patient understands that he needs to follow up with Dr Yeboah and Dr. Glover
== END 2016-10-05 13:39 | disposition home or self-care (01) | DRG 243 ==
LOC: C.ER 09:43 → C.9E 12:35 → C.6T 13:57 → C.9I 09-29 11:11 → OBSVTOIN 09-29 12:32 → C.6T 10-03 11:52
PROVIDERS: ADMIT Internal Medicine; ATTEND Internal Medicine
PROC: 02H63JZ Insertion of Pacemaker Lead into Right Atrium, Percutaneous Approach (ICD-10-PCS; 2016-09-30)
PROC: 02HK3JZ Insertion of Pacemaker Lead into Right Ventricle, Percutaneous Approach (ICD-10-PCS; 2016-09-30)
PROC: 0JH606Z Insertion of Pacemaker, Dual Chamber into Chest Subcutaneous Tissue and Fascia, Open Approach (ICD-10-PCS; principal; 2016-09-30 14:45)
PROC: 0HB6XZX Excision of Back Skin, External Approach, Diagnostic (ICD-10-PCS; 2016-10-03)
DX: I49.5 Sick sinus syndrome (principal); I50.32 Chronic diastolic (congestive) heart failure; I11.0 Hypertensive heart disease with heart failure; D69.6 Thrombocytopenia, unspecified; L76.32 Postprocedural hematoma of skin and subcutaneous tissue following other procedure; L82.1 Other seborrheic keratosis; R00.1 Bradycardia, unspecified; R55 Syncope and collapse; N40.0 Benign prostatic hyperplasia without lower urinary tract symptoms; E03.9 Hypothyroidism, unspecified; E78.5 Hyperlipidemia, unspecified; I44.1 Atrioventricular block, second degree; N28.89 Other specified disorders of kidney and ureter; Z87.891 Personal history of nicotine dependence

== ENCOUNTER 2016-11-09 08:50 | Emergency (ER) | payer MEDICARE ==
[2016-11-09 08:51] VITALS: BMI 29.7
--- NOTE | 2016-11-09 09:24 | C.PDOC ---
History Of Present Illness 89-year-old male, PMHx of HTN, high cholesterol, hypothyroid, "heart problems", BPH. 08/2016 Pc Technician, Dr. Yeboah, Dr. Benjamin/Dr. Glover placed dual chamber pacemaker ([employer]) on 09/30/16 for sick sinus syndrome. There were no complications during the procedure. Left ventricular ejection fraction was noted to be preserved per evaluation with echocardiogram. Patient presents to the emergency department with complaints of new onset vertigo like symptoms, unsteady gait ongoing on for four dayss, that is worse w position change. Patient states he is unable to walk steady when it happens. Denies nausea/ vomiting, fevers, chills, chest pain, shortness of breath, or any other associated symptoms. No other complaints at this time. Time Seen by Provider: 11/09/16 09:02 Chief Complaint (Nursing): Dizziness/Lightheaded History Per: Patient History/Exam Limitations: no limitations Onset/Duration Of Symptoms: Days Current Symptoms Are (Timing): Still Present Past Medical History Reviewed: Historical Data, Nursing Documentation, Vital Signs Vital Signs: Last Vital Signs Temp 97.6 F 11/09/16 14:26 Pulse 66 11/09/16 14:53 Resp 20 11/09/16 14:53 BP 161/59 H 11/09/16 14:53 Pulse Ox 96 11/09/16 14:53 - Medical History PMH: CHF, HTN, Hypercholesterolemia, Hypothyroidism, Pneumonia Denies: Chronic Kidney Disease Surgical History: Appendectomy, Tonsillectomy - [facility] Procedures CLOSURE SKIN & SUBCUTANEOUS NEC (07/29/14) EXCISION OF BACK SKIN, EXTERNAL APPROACH, DIAGNOSTIC (09/29/16) INSERT INDWELLING CATH (12/12/12) INSERT PACE. DUAL ALEXA IN CHEST SUBCU/FASCIA, OPEN (09/29/16) INSERTION OF PACEMAKER LEAD INTO R VENTRICLE, PERC APPROACH (09/29/16) INSERTION OF PACEMAKER LEAD INTO RIGHT ATRIUM, PERC APPROACH (09/29/16) TETANUS TOXOID ADMINIST (07/29/14) Family History: States: No Known Family Hx - Social History Hx Tobacco Use: Yes (> 40 years no smoking) Hx Alcohol Use: Yes (wine) Hx Substance Use: No - Immunization History Hx Tetanus Toxoid Vaccination: Yes Hx Influenza Vaccination: Yes (2014) Hx Pneumococcal Vaccination: Yes (2014) Review Of Systems Except As Marked, All Systems Reviewed And Found Negative. Constitutional: Negative for: Fever, Chills Cardiovascular: Negative for: Chest Pain Respiratory: Negative for: Shortness of Breath Gastrointestinal: Negative for: Nausea, Vomiting Skin: Negative for: Rash Neurological: Positive for: Dizziness. Negative for: Weakness, Numbness Physical Exam - Physical Exam Appears: Non-toxic, No Acute Distress Skin: Normal Color, Warm, Dry Head: Atraumatic, Normacephalic Eye(s): bilateral: Normal Inspection, PERRL, EOMI Nose: Normal Oral Mucosa: Moist Lips: Normal Appearing Neck: Normal ROM Cardiovascular: Rhythm Regular, No Murmur Respiratory: Normal Breath Sounds Gastrointestinal/Abdominal: Normal Exam Back: Normal Inspection Extremity: Normal ROM Neurological/Psych: Oriented x3, Other (No focal deficits) Gait: Unsteady (due to dizziness) ED Course And Treatment - Laboratory Results Result Diagrams: 11/09/16 10:06 11/09/16 10:06 ECG: Interpreted By Ca ECG Rhythm: Sinus Bradycardia Interpretation Of EC Rate From EC O2 Sat by Pulse Oximetry: 95 (on Room Air) - CT Scan/US CT HEAD Other Rad Studies (CT/US): Read By Radiologist, Radiology Report Reviewed CT/US Interpretation: Accession No. : [id number]. Patient Name / ID : DESTINY BARKER / [id number]. Exam Date : 11/09/2016 10:26:55 ( Approved ). Study Comment : Sex / Age : M / [id number]. Creator : Gurpreet Sharpe MD. Dictator : Gurpreet Sharpe MD. Adjuster Leader : Business Integration Manager : Gurpreet Sharpe MD. Approver2 : Report Date : 11/09/2016 10:28:51. My Comment : . PROCEDURE: CT HEAD WITHOUT CONTRAST. HISTORY: VERTIGO. COMPARISON: None available. TECHNIQUE: Axial computed tomography images were obtained through the head/brain without intravenous contrast. Radiation dose: Total exam DLP = 941 mGy-cm. This CT exam was performed using one or more of the following dose reduction techniques : Automated exposure control, adjustment of the mA and/or kV according to patient size, and/or use of iterative reconstruction technique. FINDINGS: HEMORRHAGE: No intracranial hemorrhage. BRAIN: Mild atrophy with a frontal lobe predominance. Scattered focal lucencies in the subcortical and periventricular white matter suggestive for chronic microvascular ischemic change. VENTRICLES: Unremarkable. No hydrocephalus. CALVARIUM: Unremarkable. PARANASAL SINUSES: Unremarkable as visualized. No significant inflammatory changes. MASTOID AIR CELLS: Unremarkable as visualized. No inflammatory changes. OTHER FINDINGS: None. IMPRESSION: Mild atrophy with a frontal lobe predominance. Chronic microvascular ischemic change. If focal neurologic deficit persists, consider MRI. Progress - Re-Evaluation Re-evaluation Note: 11/09/16 13:10 IMPROVE AMBUL COMPARED TO INITIAL. PS FEELS BETTER. CO "CHILLS" LAST ATE LAST NIGHT. 11/09/16 15:10 AMBUL WO DIFF. S/P PO TRIAL WO DIFF. CURRENTLY ASYMPT - Data Reviewed Data Reviewed: Lab, Diagnostic imaging, EKG, Old records Disposition Counseled Patient/Family Regarding: Studies Performed, Diagnosis, Need For Followup, Rx Given - Disposition Referrals: YOUR,PMD [Other] Disposition: HOME/ ROUTINE Disposition Time: 15:11 Condition: IMPROVED Prescriptions: Meclizine [Antivert] 50 mg PO TID PRN #21 tab PRN Reason: Dizziness Instructions: Vertigo (ED) - Clinical Impression Clinical Impression: Vertigo - Scribe Statement The provider has reviewed the documentation as recorded by the Julia Valenzuela All medical record entries made by the Julia were at my direction and personally dictated by me. I have reviewed the chart and agree that the record accurately reflects my personal performance of the history, physical exam, medical decision making, and the department course for this patient. I have also personally directed, reviewed, and agree with the discharge instructions and disposition.
[2016-11-09 10:13] LABS: BASO % 0.5 % (0.0-2.0); EOS # 0.2 K/uL (0.0-0.7); EOS % 3.2 % (0.0-4.0); HEMATOCRIT 41.5 % (35.0-51.0); MEAN CELL VOLUME 90.5 fL (80.0-94.0); MEAN CORPUSCULAR HEMOGLOBIN 30.6 pg (27.0-31.0); MEAN CORPUSCULAR HGB CONC 33.8 g/dL (33.0-37.0); MEAN PLATELET VOLUME 8.4 fL (7.2-11.7); MONO # 0.5 K/uL (0.0-0.8); MONO % 8.5 % (0.0-10.0); NRBC % 0.1 % (0.0-2.0); RED CELL DISTRIBUTION WIDTH 14.8 % (11.5-14.5)
--- NOTE | 2016-11-09 10:30 | CT ---
PROCEDURE: CT HEAD WITHOUT CONTRAST. HISTORY: VERTIGO COMPARISON: None available. TECHNIQUE: Axial computed tomography images were obtained through the head/brain without intravenous contrast. Radiation dose: Total exam DLP = 941 mGy-cm. This CT exam was performed using one or more of the following dose reduction techniques: Automated exposure control, adjustment of the mA and/or kV according to patient size, and/or use of iterative reconstruction technique. FINDINGS: HEMORRHAGE: No intracranial hemorrhage. BRAIN: Mild atrophy with a frontal lobe predominance. Scattered focal lucencies in the subcortical and periventricular white matter suggestive for chronic microvascular ischemic change. VENTRICLES: Unremarkable. No hydrocephalus. CALVARIUM: Unremarkable. PARANASAL SINUSES: Unremarkable as visualized. No significant inflammatory changes. MASTOID AIR CELLS: Unremarkable as visualized. No inflammatory changes. OTHER FINDINGS: None. IMPRESSION: Mild atrophy with a frontal lobe predominance. Chronic microvascular ischemic change. If focal neurologic deficit persists, consider MRI.
[2016-11-09 10:39] LABS: CHLORIDE 104 mmol/L (98-107)
[2016-11-09 10:40] LABS: POTASSIUM 3.9 mmol/L (3.6-5.2); SODIUM 140 mmol/L (132-148)
[2016-11-09 10:42] LABS: GFR AFRICAN-AMERICAN > 60
[2016-11-09 10:43] LABS: BLOOD UREA NITROGEN 23 mg/dL (9-20); CALCIUM 8.8 mg/dl (8.6-10.4); CARBON DIOXIDE 24 mmol/L (22-30); GLUCOSE,RANDOM 94 mg/dL (75-110)
[2016-11-09] MEDS ORDERED: Sodium Chloride 0.9% 1,000 ML IV SCH (10:45)
--- NOTE | 2016-11-09 11:11 | RAD ---
PROCEDURE: CHEST RADIOGRAPH, 1 VIEW HISTORY: Shortness of breath COMPARISON: 09/30/2016 FINDINGS: LUNGS: Mild venous congestion. Patchy left basilar airspace opacity with small left pleural effusion. PLEURA: As above. CARDIOVASCULAR: Cardiomegaly. Left-sided pacemaker. OSSEOUS STRUCTURES: No significant abnormalities. VISUALIZED UPPER ABDOMEN: Normal. OTHER FINDINGS: None. IMPRESSION: Mild venous congestion. Patchy left basilar airspace opacity with small left pleural effusion. Cardiomegaly. Left-sided pacemaker.
[2016-11-09 14:29] VITALS: TEMP 97.6
[2016-11-09 14:56] VITALS: BP 161/59; PULSE 66; RESP 20
[2016-11-09 15:12] VITALS: O2SAT 95
== END 2016-11-09 15:27 | disposition home or self-care (01) ==
LOC: C.ER 08:50
DX: R42 Dizziness and giddiness (principal); I11.0 Hypertensive heart disease with heart failure; I50.9 Heart failure, unspecified; E78.00 Pure hypercholesterolemia, unspecified; Z95.0 Presence of cardiac pacemaker; Z87.891 Personal history of nicotine dependence
CPT/HCPCS: 70450; 71010; 80048; 82948; 84484; 85025; 96360; 99285; J7040